=== PATIENT | female | born 1970 | race Caucasian/White ===

== ENCOUNTER 2020-11-09 14:05 | Emergency (ER) | payer OTHER ==
[2020-11-09 14:53] LABS: Urine Blood 1+ (Negative); Urine Glucose Negative (Negative); Urine Protein Negative (Negative); Urine Specific Gravity 1.025 (1.005-1.030); Urine pH 5.5 (5.0-7.0)
[2020-11-09 15:42] LABS: Urine Specific Gravity/Preg 1.025 (1.005-1.030)
[2020-11-09 15:59] LABS: Basophils % 0.7 % (0-1.3); Hematocrit 36.8 % (36.0-45.0); Lymphocytes % 14.5 % (15.3-44.8); MPV 7.9 fL (7.6-11.3); RBC Red Blood Cell Count 4.24 M/uL (3.86-4.86)
[2020-11-09 16:12] LABS: Potassium 3.4 mmol/L (3.5-5.1)
[2020-11-09 16:13] LABS: Albumin 3.7 g/dL (3.4-5.0); Bilirubin Direct 0.2 mg/dL (0-0.2); Bilirubin Total 0.6 mg/dL (0.2-1.0); Protein, Total 7.8 g/dL (6.4-8.2)
[2020-11-09] MEDS ORDERED: FAMOTIDINE 20 MG/2 ML VIAL IV ONE (16:16)
[2020-11-09] MEDS ORDERED: ONDANSETRON 4 MG/2 ML VIAL ONE (16:16)
--- NOTE | 2020-11-09 16:45 | RAD REPORT ---
EXAM DESCRIPTION: US - Abdomen Exam Limited - 11/09/2020 4:22 pm CLINICAL HISTORY: upper abdomen pain COMPARISON: No comparisons FINDINGS: The gallbladder is distended with gallstones. No gallbladder wall thickening. No perichole cystic fluid. No biliary ductal dilatation. The common bile duct measures 5 millimeters. IMPRESSION: Cholelithiasis without sonographic evidence of acute cholecystitis.
[2020-11-09 17:05] LABS: Blood Morphology Comment NOT SEEN (NOT SEEN); Platelet Estimate INCR; White Blood Cell Scan OK (OK)
--- NOTE | 2020-11-09 20:17 | RAD REPORT ---
EXAM DESCRIPTION: MRI - Cholangiogram - 11/09/2020 8:07 pm CLINICAL HISTORY: elevated liver enzymes COMPARISON: Abdomen Exam Limited dated 11/09/2020 FINDINGS: Three-dimensional MRCP was performed using maximum intensity projection reconstruction on the same work station. No intrahepatic biliary tree dilatation is seen. The common bile duct is normal caliber without evide nce of retained stone, stricture or mass. The pancreatic duct is not pathologically dilated. T2 hyper intense liver lesions are most likely benign. Cholelithiasis. No pericholecystic fluid is identified. Limited T2 sequences through the abdomen demonstrates no bulky adenopathy, significant free fluid or abscess. IMPRESSION: Cholelithiasis but no biliary ductal dilatation or evidence of choledocholithiasis.
--- NOTE | 2020-11-09 20:29 | ER ---
Nurse's Notes [facility] Name: Margarita Munoz Age: 50 yrs Sex: Female : 1970 Arrival Date: 11/09/2020 Time: 14:06 Bed 19 Private MD: Diagnosis: Other cholelithiasis without obstruction Presentation: 11/09 14:25 Chief complaint: Patient states: Pt c/o of Epigastric pain, RUQ and LUQ pain that vg1 radiates to the back that began today. Denies NVD. Coronavirus screen: Vaccine status: Patient reports receiving the 2nd dose of the covid vaccine. Client denies travel out of the [place] in the last 14 days. Ebola Screen: Patient negative for fever greater than or equal to 101.5 degrees Fahrenheit, and additional compatible Ebola Virus Disease symptoms. Initial Sepsis Screen: Does the patient meet any 2 criteria? No. Patient's initial sepsis screen is negative. Does the patient have a suspected source of infection? No. Patient's initial sepsis screen is negative. Risk Assessment: Do you want to hurt yourself or someone else? Patient reports no desire to harm self or others. Onset of symptoms was November 09, 2020. 14:25 Method Of Arrival: Wheelchair vg1 14:25 Acuity: SAHRA 3 vg1 Triage Assessment: 14:27 General: Appears in no apparent distress. uncomfortable, Behavior is calm, cooperative. vg1 Pain: Complains of pain in epigastric area, right upper quadrant and left upper quadrant and upper back Pain currently is 7 out of 10 on a pain scale. GI: Abdomen is round non-distended, Patient currently denies diarrhea, nausea, vomiting. RN HEDIS: 14:27 LMP N/A - control method vg1 Historical: - Allergies: 14:27 No Known Allergies; vg1 - Home Meds: 14:27 Lexapro Oral [Active]; vg1 - PSHx: 14:27 Appendectomy; section; vg1 - Immunization history:: Adult Immunizations up to date, Client reports receiving the 2nd dose of the Covid vaccine. - Social history:: Smoking status: Patient/guardian denies using tobacco, the patient reports quitting approximately 2 years ago. Screenin:38 Abuse screen: Denies threats or abuse. Denies injuries from another. Nutritional tr6 screening: No deficits noted. Tuberculosis screening: No symptoms or risk factors identified. Fall Risk None identified. Assessment: 15:00 General: Appears in no apparent distress. comfortable, Behavior is calm, cooperative, tr6 appropriate for age. Pain: Complains of pain in abdomen Pain radiates to lower back. Neuro: No deficits noted. Cardiovascular: No deficits noted. Respiratory: No deficits noted. GI: Bowel sounds present X 4 quads. Abd is soft and non tender. : No deficits noted. EENT: No deficits noted. Derm: No deficits noted. Musculoskeletal: No deficits noted. 16:37 Reassessment: Patient states feeling better. pt states that she is feeling much better tr6 now than on arrival with no intervention. PA Page informed. pending results of US.. General:. Vital Signs: 14:25 BP 124 / 82; Pulse 80; Resp 16; Temp 97.9(O); Pulse Ox 100% ; Weight 79.38 kg; Height 5 vg1 ft. 8 in. (172.72 cm); Pain 7/10; 19:10 BP 127 / 78; Pulse 74; Resp 18; Temp 98.2; Pulse Ox 99% ; Pain 3/10; kc4 20:56 BP 128 / 80; Pulse 78; Resp 18; Temp 98.6; Pulse Ox 100% on R/A; Pain 0/10; kc4 14:25 Body Mass Index 26.61 (79.38 kg, 172.72 cm) vg1 ED Course: 14:06 Patient arrived in ED. ds1 14:27 Triage completed. vg1 14:27 Arm band placed on Patient placed in waiting room, in a wheelchair, Patient notified of vg1 wait time. 15:15 Omkar Carson PA is PHCP. cp 15:15 Chris Wolf MD is Attending Physician. cp 15:17 Michelle Mayers RN is Primary Nurse. tr6 16:06 Initial lab(s) drawn, by me, sent to lab. Missed attempt(s): 22 gauge in left forearm. kj1 16:21 US Abdomen Limited: RUQ/epigastric In Process Unspecified. EDMS 16:38 No apparent distress. Awaiting radiology results. tr6 16:38 Patient has correct armband on for positive identification. Bed in low position. Call tr6 light in reach. Side rails up X 1. Door closed. Noise minimized. Visitors limited. Lights dimmed. Moved to private room. Warm blanket given. Diet: Patient is NPO. 16:38 No provider procedures requiring assistance completed. tr6 17:20 Inserted saline lock: 20 gauge in right antecubital area, using aseptic technique. tr6 Blood collected. 20:06 Cholangiogram In Process Unspecified. EDMS 20:28 Basil Block MD is Referral Physician. cp 20:56 IV discontinued, intact, bleeding controlled, No redness/swelling at site. Pressure kc4 dressing applied. Administered Medications: 17:23 Drug: NS 0.9% 1000 ml Route: IV; Rate: 1 bolus; Site: right antecubital; tr6 19:37 Follow up: IV Status: Completed infusion kc4 20:57 Follow up: IV Status: Completed infusion kc4 17:23 Not Given (Patient Refused): Zofran (Ondansetron) 4 mg IVP once; over 2 minutes tr6 17:23 Not Given (Patient Refused): Pepcid (famotidine) 20 mg IVP once; dilute with 10 mL 0.9% tr6 NaCl; give over 2 minutes 20:34 Drug: Potassium Effervescent Tablet 50 mEq Route: PO; kc4 20:54 Follow up: Response: No adverse reaction kc4 20:34 Drug: Rocephin (cefTRIAXone) 1 grams Route: IV; Rate: calculated rate; Site: right kc4 antecubital; 20:54 Follow up: Response: No adverse reaction kc4 Outcome: 20:29 Discharge ordered by MD. cp 20:54 Discharged to home ambulatory, with family. kc4 20:54 Condition: stable 20:54 Discharge instructions given to patient, significant other, Instructed on discharge instructions, follow up and referral plans. medication usage, Demonstrated understanding of instructions, follow-up care, medications, Prescriptions given X 3. 20:58 Patient left the ED. kc4 Signatures: Dispatcher [employer] [facility] Keli Wayne ds1 Omkar Carson PA PA cp Jackson, Kandis kj1 [place], RN RN vg1 Michelle Mayers, RN RN tr6 Jillian Walsh kc4
--- NOTE | 2020-11-09 20:29 | EDPHYS ---
Physician Documentation [facility] Name: Margarita Munoz Age: 50 yrs Sex: Female : 1970 Arrival Date: 11/09/2020 Time: 14:06 Bed 19 Private MD: ED Physician Chris Wolf HPI: 11/09 15:55 This 50 yrs old Female presents to ER via Wheelchair with complaints of cp Abdominal Pain, Chest Pain. 15:55 The patient presents with abdominal pain in the epigastric area, in the right upper cp quadrant. 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 - Social history:: Smoking status: Patient/guardian denies using tobacco, the patient reports quitting approximately 2 years ago. ROS: 16:00 Constitutional: Negative for body aches, chills, fever, poor PO intake. cp 16:00 Eyes: Negative for injury, pain, redness, and discharge. cp 16:00 ENT: Negative for ear pain, sore throat, difficulty swallowing, difficulty handling secretions. 16:00 Cardiovascular: Negative for chest pain, palpitations. 16:00 Respiratory: Negative for cough, shortness of breath, wheezing. 16:00 Abdomen/GI: Positive for abdominal pain, nausea, of the epigastric area and right upper quadrant, Negative for vomiting, diarrhea, constipation, anorexia, dysphagia. 16:00 Back: Positive for radiated pain, of the mid back area. 16:00 Neuro: Negative for altered mental status, headache, weakness. 16:00 All other systems are negative. Exam: 16:10 Head/Face: Normocephalic, atraumatic. cp 16:10 Constitutional: The patient appears in no acute distress, alert, awake, non-toxic, well developed, well nourished, uncomfortable. 16:10 Eyes: Periorbital structures: appear normal, Conjunctiva: normal, no exudate, no injection, Sclera: no appreciated abnormality, Lids and lashes: appear normal, bilaterally. 16:10 ENT: External ear(s): are unremarkable, Nose: is normal, Mouth: Lips: moist, Oral mucosa: moist, Posterior pharynx: Airway: no evidence of obstruction, patent. 16:10 Chest/axilla: Inspection: normal, Palpation: is normal, no crepitus, no tenderness. 16:10 Cardiovascular: Rate: normal, Rhythm: regular. 16:10 Respiratory: the patient does not display signs of respiratory distress, Respirations: normal, no use of accessory muscles, no retractions, labored breathing, is not present, Breath sounds: are clear throughout, no decreased breath sounds, no stridor, no wheezing. 16:10 Abdomen/GI: Inspection: abdomen appears normal, Bowel sounds: active, all quadrants, Palpation: soft, in all quadrants, mild abdominal tenderness, in the epigastric area and right upper quadrant, rebound tenderness, is not appreciated, involuntary guarding, is not appreciated. 16:10 Back: pain, that is very mild, of the mid back area, ROM is normal, Straight leg raises: of both lower extremities does not illicit pain. Vital Signs: 14:25 BP 124 / 82; Pulse 80; Resp 16; Temp 97.9(O); Pulse Ox 100% ; Weight 79.38 kg; Height 5 vg1 ft. 8 in. (172.72 cm); Pain 7/10; 19:10 BP 127 / 78; Pulse 74; Resp 18; Temp 98.2; Pulse Ox 99% ; Pain 3/10; kc4 20:56 BP 128 / 80; Pulse 78; Resp 18; Temp 98.6; Pulse Ox 100% on R/A; Pain 0/10; kc4 14:25 Body Mass Index 26.61 (79.38 kg, 172.72 cm) vg1 MDM: 15:31 Patient medically screened. cp 16:00 Differential diagnosis: cholecystitis, Cholelithiasis, gastritis, gastroesophageal cp reflux disease, pancreatitis, Peptic Ulcer Disease, Perf. Duodenal Ulcer, Perf. Gastric Ulcer. 16:50 Physician consultation: Basil Block MD was contacted at 16:45, regarding consult, cp patient's condition, would like further tests performed, MRI, and call back with results. 20:25 Data reviewed: vital signs, nurses notes, lab test result(s), radiologic studies, MRI, cp ultrasound. 20:25 Physician consultation: Basil Block MD was contacted at 20:20, regarding patient's cp condition, results of MRI, and will see patient in office, next week. 20:28 ED course: VSS. Pain resolved and patient requesting discharge to home and will f/u in cp clinic with DR Block on Friday. Patient declined admission for cholecystectomy and would rather f/u up outpatient. Patient will return to ED worsening symptoms. 11/09 14:52 Order name: Urine Dipstick-Ancillary; Complete Time: 16:27 [facility] 11/09 16:27 Interpretation: Normal except: UBLD 1+. 11/09 14:53 Order name: Urine --Ancillary (enter results); Complete Time: 16:27 11/09 15:47 Order name: Basic Metabolic Panel; Complete Time: 16:27 11/09 16:27 Interpretation: Normal except: K 3.4; GFR 67; CA 10.2. 11/09 15:47 Order name: CBC with Diff; Complete Time: 17:08 11/09 16:28 Interpretation: Normal except: WBC 13.70; PLT 488; IVA% 78.1; LYM% 14.5; NEUT A 10.7. 11/09 15:47 Order name: Hepatic Function; Complete Time: 16:27 11/09 16:27 Interpretation: Normal except: AST 79; ALK 135; GLOB 4.1; A/G 0.9. 11/09 15:47 Order name: Lipase; Complete Time: 16:27 11/09 16:58 Interpretation: Within normal limits: LIP 161. 11/09 15:48 Order name: US Abdomen Limited: RUQ/epigastric; Complete Time: 16:47 11/09 16:47 Interpretation: Report reviewed. 11/09 17:03 Order name: Cholangiogram; Complete Time: 20:22 [facility] 11/09 17:05 Order name: CBC Smear Scan; Complete Time: 17:08 [facility] 11/09 15:47 Order name: IV Saline Lock; Complete Time: 15:49 11/09 15:47 Order name: Labs collected and sent; Complete Time: 15:49 11/09 15:48 Order name: NPO; Complete Time: 15:50 cp Administered Medications: 17:23 Drug: NS 0.9% 1000 ml Route: IV; Rate: 1 bolus; Site: right antecubital; tr6 19:37 Follow up: IV Status: Completed infusion kc4 20:57 Follow up: IV Status: Completed infusion kc4 17:23 Not Given (Patient Refused): Zofran (Ondansetron) 4 mg IVP once; over 2 minutes tr6 17:23 Not Given (Patient Refused): Pepcid (famotidine) 20 mg IVP once; dilute with 10 mL 0.9% tr6 NaCl; give over 2 minutes 20:34 Drug: Potassium Effervescent Tablet 50 mEq Route: PO; kc4 20:54 Follow up: Response: No adverse reaction kc4 20:34 Drug: Rocephin (cefTRIAXone) 1 grams Route: IV; Rate: calculated rate; Site: right kc4 antecubital; 20:54 Follow up: Response: No adverse reaction kc4 Disposition: 11/10 05:21 Co-signature as Attending Physician, Chris Wolf MD I agree with the assessment and kdr plan of care. Disposition Summary: 11/09/20 20:29 Discharge Ordered Location: Home cp Problem: new cp Symptoms: are resolved cp Condition: Stable cp Diagnosis - Other cholelithiasis without obstruction cp Followup: cp - With: Basil Block MD - When: Friday (11-13-2020) in clinic - Reason: cholelithiasis Discharge Instructions: - Discharge Summary Sheet cp - Cholelithiasis cp Forms: - Medication Reconciliation Form cp - Thank You Letter cp - Antibiotic Education cp - Prescription Opioid Use cp Prescriptions: - Zofran 4 mg Oral Tablet - take 1 tablet by ORAL route every 12 hours As needed; 20 tablet; Refills: 0, cp Product Selection Permitted - Cipro 500 mg Oral Tablet - take 1 tablet by ORAL route every 12 hours for 7 days; 14 tablet; Refills: 0, cp Product Selection Permitted - dicyclomine 20 mg Oral Tablet - take 1 tablet by ORAL route 4 times per day; 30 tablet; Refills: 0, Product cp Selection Permitted Signatures: Dispatcher [employer] EDMS Chris Wolf MD MD kdr Omkar Carson PA PA cp Garcia, Victoria, RN RN vg1 Michelle Mayers RN RN tr6 Jillian Walsh kc4 Corrections: (The following items were deleted from the chart) 11/09 16:28 16:27 Normal except: WBC 13.70; PLT 488; IVA% 78.1; LYM% 14.5. cp cp
[2020-11-09] MEDS ORDERED: POTASSIUM 25 MEQ EFFERV TAB ONE (20:56)
[2020-11-09] MEDS ORDERED: CEFTRIAXONE/SWI 1gm 1 GM/10 ML SYR ONE (20:57)
[2020-11-09 21:56] VITALS: O2SAT 100
[2020-11-09 22:04] VITALS: BP 140/86; TEMP 98.3
== END 2020-11-09 20:58 | disposition home or self-care (01) ==
LOC: ER 14:05
DX: K80.80 Other cholelithiasis without obstruction (principal)
CPT/HCPCS: 96361; 85025; 80048; 36415; 81025; 80076; 81003; 83690; 74181; 76705; 96374; 99284; J0696; J2405

== ENCOUNTER 2020-11-16 07:44 | Day surgery (SDC) | payer OTHER ==
[2020-11-15 15:57] LABS: Hematocrit 33.2 % (36.0-45.0); Lymphocytes % 29.9 % (15.3-44.8); MPV 7.8 fL (7.6-11.3); RBC Red Blood Cell Count 3.81 M/uL (3.86-4.86)
[2020-11-15 16:19] LABS: ALT/SGPT 60 U/L (12-78); AST/SGOT 17 U/L (15-37); Albumin 3.5 g/dL (3.4-5.0); Alkaline Phosphatase 85 U/L (45-117); Amylase 67 U/L (25-115); BUN Blood Urea Nitrogen 15 mg/dL (7-18); Bicarbonate 26 mmol/L (21-32); Bilirubin Direct < 0.1 mg/dL (0-0.2); Bilirubin Total 0.4 mg/dL (0.2-1.0); Glucose Level 135 mg/dL (74-106); Potassium 3.6 mmol/L (3.5-5.1); Protein, Total 7.2 g/dL (6.4-8.2); Sodium Level 139 mmol/L (136-145)
--- NOTE | 2020-11-15 16:45 | RAD REPORT ---
EXAM DESCRIPTION: RAD - Chest Pa And Lat (2 Views) - 11/15/2020 3:42 pm CLINICAL HISTORY: PreOp COMPARISON: Chest Pa And Lat (2 Views) dated 01/23/2018 FINDINGS: Lines: None. Lungs: No evidence of edema or pneumonia. Pleural: No significant pleural effusions or pneumothorax. Cardiac: The heart size is within normal limits. Bones: No acute fractures. Other: IMPRESSION: No acute cardiopulmonary disease.
[2020-11-16] MEDS ORDERED: Ringers Lactate 1,000 ML IV ONE ×2 (08:14→11:00)
[2020-11-16] MEDS ORDERED: CEFOXITIN/SWI 1gm 1 GM/10 ML SYR ONE (08:15)
[2020-11-16] MEDS ORDERED: propofoL 200 MG/20 ML VIAL IV ONE (09:08)
[2020-11-16] MEDS ORDERED: GLYCOPYRROLATE 0.2 MG/ML SYR ONE (09:08)
[2020-11-16] MEDS ORDERED: LIDOCAINE 1% MPF 2 ML AMPULE ONE (09:09)
[2020-11-16] MEDS ORDERED: FENTANYL CITR 100 MCG/2 ML ONE (09:09)
[2020-11-16] MEDS ORDERED: ROCURONIUM 50 MG/5 ML VIAL IV ONE (09:09)
[2020-11-16] MEDS ORDERED: ONDANSETRON 4 MG/2 ML VIAL ONE (09:09)
[2020-11-16] MEDS ORDERED: MIDAZOLAM HCL 2 MG/2 ML INJ ONE (09:09)
[2020-11-16] MEDS ORDERED: dexAMETHasone 10 MG/ML VIAL ONE (09:09)
[2020-11-16] MEDS ORDERED: KETOROLAC 30 MG/ML INJ ONE (09:09)
[2020-11-16] MEDS ORDERED: BUPIVACAINE 0.5% PF 10 ML VIAL ONE (09:29)
[2020-11-16] MEDS ORDERED: NEOSTIGMINE 1 MG/ML -5 ML ONE (10:52)
--- NOTE | 2020-11-16 11:04 | OP ---
Date of Procedure: 11/16/2020 Surgeon: Basil Block MD Damage Appraiser: FRANK Obando Preoperative Diagnosis: Chronic cholecystitis and cholelithiasis. Postoperative Diagnosis: Chronic cholecystitis and cholelithiasis. Procedure: Laparoscopic cholecystectomy. Estimated Blood Loss: Minimal. Specimen: Gallbladder. Findings: As above. Anesthesia: General. Complications: None. Disposition: The patient tolerated the procedure in stable condition and taken to Recovery in good g eneral condition. Procedure In Detail: The patient was brought to the OR and placed in supine position. General anest hesia begun. The patient was prepped and draped in the usual sterile fashion. Marcaine 0.5% was inf iltrated locally. A 15-blade was used to make a 1 cm incision in the supraumbilical region. Subcuta neous tissue divided. Fascia was identified and divided. Peritoneal cavity entered with sharp and b perri dissection. A 12 mm trocar was placed into the peritoneal cavity under direct vision. Pneumope ritoneum was established. Then, three 5 mm trocars were placed, 1 in the epigastrium just to the rig ht of midline and 2 in the right subcostal region. Laparoscopy revealed chronic inflammation of the gallbladder. Fundus retracted superiorly. Infundibulum identified and retracted inferolaterally. C ystic duct and cystic artery were clearly identified with sharp and blunt dissection. Clips placed. Both structures divided. Cautery was used to remove the gallbladder from the liver bed. Bleeding o n the liver bed was controlled with cautery. Gallbladder was retrieved through the umbilicus via an EndoCatch bag. Right upper quadrant was irrigated. Effluent was clear. No evidence of bleeding or bile leakage appreciated. Subsequently, all trocars were removed under direct vision. A #1 Vicryl w as used to close the fascial defects. Subcutaneous wounds irrigated. Bleeding controlled with caute ry. A 3-0 chromic used to reapproximate subcutaneous tissue and maryse used to close the skin. Hans rile dressing applied. The patient was awakened and taken to Recovery in good general condition. Discharge Note: The patient will go to Day Surgery and home when stable. Disposition: Home. Condition: Stable. Discharge Instructions: Resume home medications and diet. Activity as tolerated. No heavy lifting. Remove outer dressing in 2 days. Shower. Keep wound clean and dry. Follow up in my office [place] Call for appointment. Tylenol No.3 one tablet p.o. q.4 p.r.n. pain. SANDHYA/YISEL Voice ID: [id number] Report ID: [id number]
[2020-11-16 11:11] VITALS: O2SAT 95
[2020-11-16] MEDS ORDERED: HYDROCODONE/APAP 7.5/325 MG TAB ONE (12:01)
[2020-11-16] MEDS ORDERED: NA CIT/CITRIC AC 30 ML ORAL UDC ONE (12:04)
[2020-11-16 12:24] VITALS: BP 132/78; TEMP 97.6
== END 2020-11-16 12:40 | disposition home or self-care (01) ==
LOC: OR 07:44
PROVIDERS: ATTEND Surgery
PROC: 0FT44ZZ Resection of Gallbladder, Percutaneous Endoscopic Approach (ICD-10-PCS; principal; 2020-11-16 09:30)
DX: K80.10 Calculus of gallbladder with chronic cholecystitis without obstruction (principal); Z20.822 Contact with and (suspected) exposure to COVID-19
CPT/HCPCS: 93005; 85025; 80048; 36415; 82150; 84703; 80076; 88304; 71046; 47562; U0003; J2704; J2250; J3010; J1100; J2710; J7120 ×2; J2405

== ENCOUNTER 2021-12-31 12:05 | Day surgery (SDC) | payer OTHER ==
[2021-12-28 10:45] LABS: Absolute Lymphocytes (CBC) 2.2 K/uL (0.7-4.9); Hematocrit 40.3 % (36.0-45.0); Lymphocytes % 26.2 % (15.3-44.8); MCV 86.1 fL (80-100); RBC Red Blood Cell Count 4.69 M/uL (3.86-4.86)
[2021-12-28 10:52] LABS: Specific Gravity 1.006 (1.005-1.030)
[2021-12-28 10:53] LABS: Protime INR 0.98
[2021-12-28 11:07] LABS: Potassium 4.1 mmol/L (3.5-5.1)
--- NOTE | 2021-12-29 12:37 | EKG ---
Test Date: 2021-12-28 Test Time: 10:13:15 Story Editor: TA MEASUREMENT RESULTS: Intervals: Rate: 60 CO: 160 QRSD: 84 QT: 428 QTc: 428 Craig: P: 56 CO: 160 QRS: 64 T: 26 INTERPRETIVE STATEMENTS: Normal sinus rhythm Normal ECG Compared to ECG 11/27/2021 22:53:23 No significant changes Electronically Signed On 12-29-21 12:35:56 CDT by Miguel Miller
[2021-12-31] MEDS ORDERED: NA CHLORIDE 0.9% 500 ML ONE (12:29)
[2021-12-31] MEDS ORDERED: LIDOCAINE 1% 20 ML MDV ONE (12:49)
[2021-12-31] MEDS ORDERED: HEPA 1000U/500MLS 2,000 UNIT/1,000 ML BAG IV ONE (12:49)
[2021-12-31] MEDS ORDERED: FENTANYL CITR 100 MCG/2 ML ONE (13:03)
[2021-12-31] MEDS ORDERED: CLOPIDOGREL 75 MG TABLET ONE (13:04)
[2021-12-31] MEDS ORDERED: MIDAZOLAM HCL 2 MG/2 ML INJ ONE (13:04)
[2021-12-31] MEDS ORDERED: VERAPAMIL HCL 10 MG/4 ML VIAL IV ONE (13:04)
[2021-12-31] MEDS ORDERED: HEPARIN 5000 UNIT/ML 1 ML VIAL ONE (13:04)
[2021-12-31] MEDS ORDERED: ASPIRIN 325 MG TAB ONE (13:04)
[2021-12-31] MEDS ORDERED: TICAGRELOR 90 MG TABLET PO ONE (13:05)
[2021-12-31] MEDS ORDERED: HEPARIN 10,000 UNIT/10 ML VIAL IV ONE (13:05)
[2021-12-31] MEDS ORDERED: ATROPINE SULF 1 MG/10 ML SYR IV ONE (13:05)
[2021-12-31 15:38] VITALS: BP 122/66; O2SAT 98
--- NOTE | 2022-01-01 00:41 | OP ---
Date of Procedure: 12/31/2021 Surgeon: SERENITY WALL Procedures Performed: 1.Selective coronary angiogram. 2.Left heart catheterization. 3.Right heart catheterization. Indication: 1.Persistent chest pain suggestive of unstable angina. 2.Congestive heart failure symptoms. Access: 1.Right radial artery 6-[place] closed with TR band. 2.Right IJ 7-[place] access closed with manual pressure. Complications: None. Estimated Blood Loss: Bleeding less than 10 mL. Anesthesia: Total sedation time was 35 minutes, used fentanyl and Versed. Description Of Procedure: After risks, benefits, and alternatives were explained, the patient agreed to the procedure and signed informed consent. Patient was brought to the cardiac catheterization la boratory and prepped and draped in usual sterile fashion. Then, I accessed the right IJ using microp uncture kit, ultrasound guidance, and placed 7-[place] sheath. Then I accessed right radial artery using pediatric micropuncture kit and placed a 6-[place] Sl[place] sheath. I then took a 7-Frenc h [place] catheter through the IJ access into the RA, RV, PA and wedge, measured pressure and waveform w as obtained and then the thermodilutional cardiac output was obtained. I removed the [place] and then I took 5-[place] 4 catheter into the aortic root through the radial access over a J-wire, engaged left main and right coronary artery, took standard views and then catheter was pushed over the wire into the LV and measured the LVEDP and pullback did not record any gradient. I removed the catheter and sheath, placed TR band with good hemostasis. The IJ sheath was removed and manual pressure was u sed for closure with good hemostasis. Findings: Coronary angiogram: 1.Left main: Moderate size and normal. 2.LAD: Moderate size and normal. Normal diagonal branches. 3.There is ramus intermedius that appears to be normal and smaller sized. 4.Left circumflex: Moderate size and normal. 5.RCA: Moderate size and normal in dominant circulation. 6.Elevated LVEDP at 15 mmHg. Right heart catheterization numbers: PA pressure was 12/10 with mean of 11. RV pressure was 27/13 w ith mean of 15. PA pressure was 26/70 with mean of 21. Pulmonary wedge pressure was 15 and LVEDP wa s 15. Cardiac output was 5.3 L/minute. Conclusion: 1.Normal coronary arteries. 2.Slightly elevated filling pressures with normal cardiac output. Plan: Medical management and diuretics. SR/MODL Voice ID: [id number] Report ID: [id number]
== END 2021-12-31 15:38 | disposition home or self-care (01) ==
LOC: CCL 12:05
PROVIDERS: ATTEND Internal Medicine
DX: I20.0 Unstable angina (principal); I50.9 Heart failure, unspecified; Z87.891 Personal history of nicotine dependence; Z79.899 Other long term (current) drug therapy; Z82.49 Family history of ischemic heart disease and other diseases of the circulatory system
CPT/HCPCS: 36415; 76937; 80048; 81025; 82947; 85025; 85610; 85730; 93005; 93460; C1893; J1644; J2250; J3010; J7040; Q9966

== ENCOUNTER 2022-01-07 16:15 | Inpatient (IN) | payer OTHER ==
[2022-01-07] MEDS ORDERED: HEPARIN 5000 UNIT/ML 1 ML VIAL IV SCH (19:00)
--- NOTE | 2022-01-07 20:05 | P.HP ---
Certification for Inpatient Patient admitted to: Inpatient With expected LOS: <2 Midnights Patient will require the following post-hospital care: None Practitioner: I am a practitioner with admitting privileges, knowledge of patient current condition, hospital course, and medical plan of care. Services: Services provided to patient in accordance with Admission requirements found in Title 42 Section 412.3 of the Code of Federal Regulations Patient History Date of Service: 01/07/22 Reason for admission: Radial Artery Thrombosis History of Present Illness: Patient is a 51-year-old female with history of CAD, CHF, non-insulin dependent type 2 diabetes, depression, and anemia who presented to the ED with radial artery thrombosis. Patient had a cardiac cath with Dr. Dahl 1 week ago. She had an ultrasound follow-up today which revealed thrombosis in her radial artery and was sent to the ED. Her vital signs are stable. Labs are within normal ferraro its. No cyanosis, decreased sensation, numbness. Mild bruising and swelling noted to right wrist. Dr. Dahl wishes for her to be admitted and started on heparin drip. Allergies No Known Allergies Allergy (Verified 12/28/21 10:30) Home medications list reviewed: Yes Home Medications: Escitalopram [Lexapro] 20 mg PO DAILY 11/15/20 Ferrous Sulfate 325 mg PO DAILY 12/28/21 Furosemide [Lasix] 40 mg PO DAILY 12/28/21 Metformin ER [Glucophage ER*] 500 mg PO DAILY 12/28/21 Potassium Chloride 20 meq PO DAILY 12/28/21 - Past Medical/Surgical History Diabetic: Yes -: Type 2 Diabetes, Non-Insulin Dependent -: CAD -: CHF -: Anemia -: Depression -: Cholecystectomy -: Cardiac cath with stent placement -: Appendectomy Psychosocial/ Personal History: Patient lives at home with her . - Social History Smoking Status: Never smoker Alcohol use: No CD- Drugs: No Caffeine use: Yes Place of Residence: Home Review of Systems Musculoskeletal: Arm Pain Physical Examination - Physical Exam General: Alert, In no apparent distress HEENT: Atraumatic, PERRLA, EOMI, Sclerae nonicteric Neck: Supple, 2+ carotid pulse no bruit, No LAD, Without JVD or thyroid ab normality Respiratory: Clear to auscultation bilaterally, Normal air movement Cardiovascular: Regular rate/rhythm, Normal S1 S2 Gastrointestinal: Normal bowel sounds, No tenderness Musculoskeletal: No tenderness Integumentary: Tenderness/swelling, Erythema Neurological: Normal speech, Normal strength at 5/5 x4 extr, Normal tone, Normal affect Assessment and Plan - Problems (Diagnosis) (1) Radial artery thrombosis, right Current Visit: Yes Status: Acute (2) CAD (coronary artery disease) Current Visit: Yes Status: Chronic Qualifiers: Coronary Disease-Associated Artery/Lesion type: craig artery [place] vs. transplanted heart: craig heart Associated angina: without angina Qualified Code(s): I25.10 - Atherosclerotic heart disease of craig coronary artery without angina pectoris (3) Hypertension Current Visit: Yes Status: Chronic Qualifiers: Hypertension type: primary hypertension Qualified Code(s): I10 - Essential (primary) hypertension - Plan Continue heparin drip. Glucose monitoring and control with sliding scale. Cardiology consult. Monitor on telemetry. Monitor and replete electrolytes per protocol. Reconcile and continue home medications. Full code. Discharge Plan: Home Plan to discharge in: 48 Hours - Advance Directives Does patient have a Living Will: No Does patient have a Durable POA for Healthcare: No - Code Status/Comfort Care Code Status Assessed: Yes (Full) Critical Care: No Time Spent Managing Pts Care (In Minutes): 50
[2022-01-07] MEDS ORDERED: HEPARIN 5000 UNIT/ML 1 ML VIAL ONE (20:42)
[2022-01-07] MEDS ORDERED: HEPARIN/D5W 25,000 UNIT/500 ML BAG IV ONE (20:43)
[2022-01-07 21:40] LABS: Hematocrit 38.2 % (36.0-45.0); Lymphocytes % 33.4 % (15.3-44.8); MCV 86.6 fL (80-100); MPV 8.1 fL (7.6-11.3); RBC Red Blood Cell Count 4.41 M/uL (3.86-4.86)
[2022-01-07 21:44] LABS: SARS-CoV-2 Antigen Rapid Res Negative (Negative)
[2022-01-07 21:47] LABS: Protime INR 0.92
[2022-01-07 22:03] LABS: Potassium 3.8 mmol/L (3.5-5.1)
[2022-01-07] MEDS ORDERED: ACETAMINOPHEN 325 MG TABLET ONE (22:30)
[2022-01-07] MEDS ORDERED: ACETAMINOPHEN 500 MG TAB PO PRN (22:58)
[2022-01-07] MEDS ORDERED: GLUCAGON 1 MG/VIAL IM PRN (22:58)
[2022-01-07] MEDS ORDERED: D50W 25 GM/50 ML SYRINGE IV PRN (22:58)
--- NOTE | 2022-01-07 22:59 | RAD REPORT ---
EXAM DESCRIPTION: US - UPPER EXTREMITY VENOUS UNILATE - 01/07/2022 8:28 pm CLINICAL HISTORY: Pain Arm swelling and edema. COMPARISON: Extrem Venous W Compress Lamberto dated 11/27/2021 FINDINGS: Right upper extremity venous system was interrogated with Doppler technique. Normal flow, compressibility and augmentation was noted. There is no DVT present. IMPRESSION: No evidence of right upper extremity deep venous thrombosis.
[2022-01-07] MEDS ORDERED: HYDROCODONE/APAP 7.5/325 MG TAB PO PRN (23:27)
[2022-01-07] MEDS: HEPARIN/D5W 25,000 UNIT/500 ML BAG IV PRN (23:29)
[2022-01-07] MEDS ORDERED: HYDROCODONE/APAP 7.5/325 MG TAB ONE (23:34)
[2022-01-07] MEDS ORDERED: FUROSEMIDE 40 MG TABLET PO ONE (23:48)
[2022-01-07] MEDS ORDERED: ESCITALOPRAM 20 MG TAB PO ONE (23:48)
[2022-01-08] MEDS ORDERED: FUROSEMIDE 40 MG TABLET ONE (00:31)
[2022-01-08] MEDS ORDERED: ESCITALOPRAM 20 MG TAB ONE (00:34)
--- NOTE | 2022-01-08 01:01 | EDPHYS ---
Physician Documentation [facility] Name: Margarita Munoz Age: 51 yrs Sex: Female : 1970 Arrival Date: 01/07/2022 Time: 16:17 Bed 6 Private MD: ED Physician Oniel Aguilar HPI: 01/07 17:02 This 51 yrs old Female presents to ER via Ambulatory with complaints of Blood Clot. rn 17:02 The patient or guardian reports pain. The complaints affect the right wrist diffusely. rn Onset: The symptoms/episode began/occurred 1 week(s) ago. Modifying factors: The symptoms are alleviated by nothing, the symptoms are aggravated by nothing. Associated signs and symptoms: Pertinent negatives: cyanosis distally, decreased sensation distally, fever, numbness distally, tingling distally. The patient has not experienced similar symptoms in the past. The patient has not recently seen a physician. REports right radial access heart cath 1 week ago, just sent by Dr. Dahl for blood clot in right wrist. No hx of blood clot. . 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 - Social history:: Smoking status: Patient denies any tobacco usage or history of. Patient/guardian denies using alcohol. - Family history:: not pertinent. - Hospitalizations: : No recent hospitalization is reported. ROS: 17:02 Constitutional: Negative for fever, chills, and weight loss, Cardiovascular: Negative rn for chest pain, palpitations, and edema, Respiratory: Negative for shortness of breath, cough, wheezing, and pleuritic chest pain, Abdomen/GI: Negative for abdominal pain, nausea, vomiting, diarrhea, and constipation, MS/Extremity: + right wrist pain and swelling Skin: + bruising to right wrist Neuro: Negative for headache, weakness, numbness, tingling, and seizure. Exam: 17:02 Constitutional: This is a well developed, well nourished patient who is awake, alert, rn and in no acute distress. Head/Face: Normocephalic, atraumatic. Cardiovascular: Regular rate and rhythm. No pulse deficits. Skin: Warm, dry, slight ecchymosis and swelling right wrist MS/ Extremity: Pulses equal, no cyanosis. Neurovascular intact. Full, normal range of motion. Radial pulse intact and present. Vital Signs: 16:26 BP 141 / 85; Pulse 87; Resp 18; Temp 98.6(O); Pulse Ox 96% on R/A; Weight 90.72 kg; ld1 Height 5 ft. 8 in. (172.72 cm); Pain 6/10; 16:50 BP 128 / 78; Pulse 80; Resp 18; Pulse Ox 95% on R/A; ph 19:15 BP 143 / 75; Pulse 68; Resp 18; Temp 98.5; Pulse Ox 97% ; pf1 20:00 BP 156 / 74; Pulse 65; Resp 17; Pulse Ox 96% ; pf1 21:00 BP 158 / 94; Pulse 77; Resp 16; Pulse Ox 96% ; pf1 22:00 BP 140 / 77; Pulse 67; Resp 17; Pulse Ox 97% ; pf1 16:26 Body Mass Index 30.41 (90.72 kg, 172.72 cm) ld1 MDM: 16:26 Patient medically screened. rn 01/07 20:40 Order name: SARS RAPID as6 01/07 20:54 Order name: CBC with Diff kl 01/07 20:54 Order name: Basic Metabolic Panel kl 01/07 20:54 Order name: PT-INR kl 01/07 20:54 Order name: Ptt, Activated kl 01/08 01:00 Order name: SARS-COV-2 Antigen Rapid EDMS 01/08 01:00 Order name: CBC with Automated Diff EDMS 01/08 01:00 Order name: Protime (+INR) EDMS 01/08 01:00 Order name: PTT, Activated Partial Thromb EDMS 01/08 01:00 Order name: Basic Metabolic Panel EDMS 01/08 02:48 Order name: Protime (+INR) EDMS 01/08 02:50 Order name: PTT, Activated Partial Thromb EDMS 01/08 03:50 Order name: Urine Dipstick-Ancillary EDMS 01/08 04:35 Order name: Urinalysis EDMS 01/07 16:31 Order name: Extremity Venous Uni Ltd US rn 01/07 16:31 Order name: Lower Extremity Artery Uni Ltd rn 01/08 01:02 Order name: US EDMS 01/08 06:19 Order name: CBC with Automated Diff EDMS 01/08 06:32 Order name: Basic Metabolic Panel EDMS 01/08 06:32 Order name: Phosphorus EDMS 01/08 06:32 Order name: Magnesium EDMS 01/08 08:25 Order name: US EDMS 01/08 10:20 Order name: Ptt, Activated ph 01/08 10:42 Order name: Glucose, Ancillary Testing EDMS 01/08 11:28 Order name: PTT, Activated Partial Thromb EDMS Administered Medications: No medications were administered Disposition Summary: 01/07/22 20:00 Hospitalization Ordered Hospitalization Status: Observation rn Provider: Clark Hendricks rn Condition: Stable rn Problem: new rn Symptoms: have improved rn Bed/Room Type: Standard rn Location: Telemetry/MedSurg (observation)(01/08/22 09:48) bd Room Assignment: 410(01/08/22 09:48) bd Diagnosis - Arterial thrombus of right arm rn Forms: - Medication Reconciliation Form rn - SBAR form rn Signatures: Dispatcher [employer] EDNC Marleni Painter Oniel Aguilar MD MD rn Hall, Patricia, RN RN ph Garcia, Cindy RN RN Joanne Dean RN RN ld1 Corrections: (The following items were deleted from the chart) 20:45 20:00 Telemetry/MedSurg (observation) rn cg 20:45 20:00 rn cg 01/08 09:48 01/07 20:45 [facility] ER HOLD cg bd 01/08 09:48 01/07 20:45 ERHOLD- cg bd
--- NOTE | 2022-01-08 01:01 | ER ---
Nurse's Notes [facility] Name: Margarita Munoz Age: 51 yrs Sex: Female : 1970 Arrival Date: 01/07/2022 Time: 16:17 Bed 6 Private MD: Diagnosis: Arterial thrombus of right arm Presentation: 01/07 16:26 Chief complaint: Patient states: Ultrasound done today at Dr. Box's office - ld1 ultrasound revealed blood clot to right arm in artery. Pt reports having heart cath done on 12/31/2021 - c/o pain to right wrist/forearm. Coronavirus screen: At this time, the client does not indicate any symptoms associated with coronavirus-19. Ebola Screen: No symptoms or risks identified at this time. Initial Sepsis Screen: Does the patient meet any 2 criteria? No. Patient's initial sepsis screen is negative. Does the patient have a suspected source of infection? No. Patient's initial sepsis screen is negative. Risk Assessment: Do you want to hurt yourself or someone else? Patient reports no desire to harm self or others. Onset of symptoms was January 07, 2022. 16:26 Method Of Arrival: Ambulatory ld1 16:26 Acuity: SAHRA 3 ld1 Triage Assessment: 16:27 General: Appears in no apparent distress. comfortable, Behavior is calm, cooperative, ld1 appropriate for age. Pain: Complains of pain in right arm Pain does not radiate. Pain currently is 6 out of 10 on a pain scale. Quality of pain is described as throbbing, Pain began gradually. EENT: No signs and/or symptoms were reported regarding the EENT system. Neuro: Level of Consciousness is awake, alert, obeys commands, Oriented to person, place, time, situation. Cardiovascular: Capillary refill < 3 seconds Patient's skin is warm and dry. Respiratory: Airway is patent Respiratory effort is even, unlabored. GI: Abdomen is round non-distended. : No signs and/or symptoms were reported regarding the genitourinary system. Derm: No signs and/or symptoms reported regarding the dermatologic system. Musculoskeletal: No signs and/or symptoms reported regarding the musculoskeletal system. 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 - Social history:: Smoking status: Patient denies any tobacco usage or history of. Patient/guardian denies using alcohol. - Family history:: not pertinent. - Hospitalizations: : No recent hospitalization is reported. Screenin:38 Abuse screen: Denies threats or abuse. Denies injuries from another. Nutritional ph screening: No deficits noted. Tuberculosis screening: No symptoms or risk factors identified. Fall Risk None identified. Assessment: 16:49 General: Appears in no apparent distress. comfortable, well groomed, Behavior is calm, ph cooperative, appropriate for age. Pain: Complains of pain in right arm. Neuro: Level of Consciousness is awake, alert, obeys commands, Oriented to person, place, time, situation. Cardiovascular: Denies chest pain, shortness of breath, Capillary refill < 3 seconds in bilateral fingers Patient's skin is warm and dry. Edema is 1+ to right forearm and right wrist. Respiratory: Airway is patent Respiratory effort is even, unlabored, Respiratory pattern is regular, symmetrical. GI: No signs and/or symptoms were reported involving the gastrointestinal system. Derm: Skin is healthy with good turgor, Skin is pink, warm \T\ dry. Musculoskeletal: Circulation, motion, and sensation intact. Range of motion: intact in all extremities. 19:00 Reassessment: Patient appears in no apparent distress at this time. pf1 19:00 General: Appears in no apparent distress. comfortable, well groomed, well developed, pf1 Behavior is calm, cooperative, appropriate for age, quiet. Pain: Complains of pain in right hand/thumb, right forearm Pain currently is 6 out of 10 on a pain scale. Pain began Patient stated pain to right arm for 1 week, S/P heart catherization. Neuro: No deficits noted. Cardiovascular: No deficits noted. Respiratory: No deficits noted. GI: No deficits noted. : No deficits noted. EENT: No deficits noted. Derm: No deficits noted. Musculoskeletal: No deficits noted. Circulation, motion, and sensation intact. Capillary refill < 3 seconds, in bilateral fingers. Range of motion: intact in all extremities. Vital Signs: 16:26 BP 141 / 85; Pulse 87; Resp 18; Temp 98.6(O); Pulse Ox 96% on R/A; Weight 90.72 kg; ld1 Height 5 ft. 8 in. (172.72 cm); Pain 6/10; 16:50 BP 128 / 78; Pulse 80; Resp 18; Pulse Ox 95% on R/A; ph 19:15 BP 143 / 75; Pulse 68; Resp 18; Temp 98.5; Pulse Ox 97% ; pf1 20:00 BP 156 / 74; Pulse 65; Resp 17; Pulse Ox 96% ; pf1 21:00 BP 158 / 94; Pulse 77; Resp 16; Pulse Ox 96% ; pf1 22:00 BP 140 / 77; Pulse 67; Resp 17; Pulse Ox 97% ; pf1 16:26 Body Mass Index 30.41 (90.72 kg, 172.72 cm) ld1 ED Course: 16:17 Patient arrived in ED. mr 16:26 Oniel Aguilar MD is Attending Physician. rn 16:27 Triage completed. ld1 16:27 Arm band placed on right wrist. ld1 16:38 Patient has correct armband on for positive identification. Bed in low position. Call ph light in reach. Side rails up X 1. Pulse ox on. NIBP on. Door closed. Noise minimized. Warm blanket given. 16:51 Masha Veronica, RN is Primary Nurse. ph 19:00 No provider procedures requiring assistance completed. pf1 19:45 Missed attempt(s): 20 gauge in left wrist. pf1 19:55 Clark Hendricks MD is Hospitalizing Provider. rn 20:20 Inserted saline lock: 20 gauge in left antecubital area, using aseptic technique. pf1 ,using aseptic technique. US guided IV inserted per Sigrid Jeronimo RN. Blood collected. Accessed. 01/08 00:27 Patient admitted, IV remains in place. pf1 01:09 Extremity Venous Uni Ltd US In Process Unspecified. EDMS 01:09 Lower Extremity Artery Uni Ltd US In Process Unspecified. EDMS Administered Medications: No medications were administered Medication: 01/07 16:38 VIS not applicable for this client. ph Outcome: 20:00 Decision to Hospitalize by Provider. rn 01/08 00:26 Condition: stable pf1 00:27 Admitted to ER Hold. Please see [facility] for further documentation. pf1 11:51 Patient left the ED. db Signatures: Dispatcher [employer] EDNJ Tran QuevedoOniel cruz MD MD rn Hall, Patricia, RN RN Joanne Garcia RN RN ld1 Marianne Paige RN RN db Cherelle mckeon RN RN pf1 Corrections: (The following items were deleted from the chart) 01/07 16:29 16:26 Chief complaint: Patient states: Ultrasound done today at Dr. Box's office - ld1 ultrasound revealed blood clot to right arm. Pt reports having heart cath done on 12/31/2021 - c/o pain to right wrist/forearm. ld1 16:50 16:49 Cardiovascular: Denies chest pain, shortness of breath, Capillary refill < 3 ph seconds in bilateral fingers Patient's skin is warm and dry. ph
[2022-01-08] MEDS ORDERED: D10W 125 ML IV PRN (01:32)
[2022-01-08] MEDS ORDERED: ACETAMINOPHEN 325 MG TABLET PO PRN (02:00)
[2022-01-08 02:01] VITALS: BMI 30.3
[2022-01-08 03:50] LABS: Urine Blood Negative (Negative); Urine Glucose Negative (Negative); Urine Protein Negative (Negative); Urine Specific Gravity 1.025 (1.005-1.030); Urine pH 6.5 (5.0-7.0)
[2022-01-08 04:35] LABS: Specific Gravity 1.029 (1.005-1.030); Urine Bilirubin NEGATIVE (Negative); Urine Blood Negative (Negative); Urine Clarity Clear (Clear); Urine Color Yellow (Yellow); Urine Glucose NEGATIVE (Negative); Urine Protein TRACE (Negative); Urine Urobilinogen Normal (Normal); Urine pH 6.5 (5.0-7.0)
[2022-01-08 06:10] LABS: Absolute Lymphocytes (CBC) 2.8 K/uL (0.7-4.9); Hematocrit 37.4 % (36.0-45.0); Lymphocytes % 42.1 % (15.3-44.8); MCV 86.9 fL (80-100); MPV 7.7 fL (7.6-11.3)
[2022-01-08 06:26] LABS: Magnesium 2.3 mg/dL (1.8-2.4); Phosphorus 2.7 mg/dL (2.5-4.9); Potassium 3.7 mmol/L (3.5-5.1)
[2022-01-08] MEDS ORDERED: PNEUMOCOCCAL VACCINE 0.5 ML IMVAC ONE (08:00)
[2022-01-08] MEDS ORDERED: INFLUENZA VACCINE (for 6+ mo) 0.5 ML DOSE IMVAC ONE (08:00)
--- NOTE | 2022-01-08 08:25 | RAD REPORT ---
EXAM DESCRIPTION: US - Upper Ext Artery Uni Lamberto - 01/07/2022 8:29 pm CLINICAL HISTORY: recent cath Arm pain and swelling COMPARISON: UPPER EXTREMITY VENOUS UNILATE dated 01/07/2022 FINDINGS: Grayscale, color and power Doppler interrogation of the right upper extremity arterial sys tem was performed. Triphasic waveforms seen throughout the right upper extremity arterial system. In the region of the r ight radial artery at the level the wrist, no arterial flow could be demonstrated sonographically. Th is may indicate arterial occlusion in this region. Elsewhere there is no indication of arterial occlu hollis seen.
[2022-01-08] MEDS: INSULIN -REGULAR HUMAN 50 UNIT/0.5 ML ML SQ SCH ×4 (10:42→21:00)
[2022-01-08] MEDS: HEPARIN/D5W 25,000 UNIT/500 ML BAG IV PRN (17:00)
[2022-01-09] MEDS: INSULIN -REGULAR HUMAN 50 UNIT/0.5 ML ML SQ SCH (07:30)
[2022-01-09 10:28] VITALS: O2SAT 100
[2022-01-09] MEDS: HEPARIN/D5W 25,000 UNIT/500 ML BAG IV PRN (12:00)
--- NOTE | 2022-01-09 16:16 | RAD REPORT ---
EXAM DESCRIPTION: US - Upper Ext Artery Uni Lamberto - 01/09/2022 4:05 pm CLINICAL HISTORY: radial artery thrombosis? Arm pain, swelling COMPARISON: Upper Ext Artery Uni Lamberto dated 01/07/2022 FINDINGS: Doppler interrogation of the right upper extremity arterial system was performed. On today's study there is mild monophasic flow seen in the right radial artery. There continues to be echogenic material within the vessel. Right brachial artery is unremarkable. IMPRESSION: Mild monophasic flow seen in the right radial artery at the wrist on today's study, charlotte cating mild improvement since prior study in the degree of thrombosis.
[2022-01-09 16:29] VITALS: BP 136/79; TEMP 98.4
--- NOTE | 2022-01-10 15:11 | CON ---
The patient is 51, was admitted to Dr. Hendricks's service on 01/07/2022 with right radial artery thrombos is following a recent catheterization. History Of Present Illness: Ms. Munoz was sent from Dr. Dahl to the hospital because of right r adial thrombosis. She was placed on heparin and by the time I saw her, she had good pulses in the [facility] radial artery. Her right hand was not discolored anymore and she was pretty asymptomatic. Past Medical History: Includes hypertension, diabetes, congestive heart failure, depression. Allergies: NONE. Review of Systems: Negative. Social History: Negative. Family History: Negative. Medications: At home include metoprolol, Lasix, and iron. Physical Examination: Vital Signs: Stable, afebrile. HEENT: Negative. Neck: Supple without bruit. Chest: Clear. Cardiac: Normal. Abdomen: Benign. Extremities: Revealed no clubbing, cyanosis, or edema. Right radial artery has good pulses. Right hand appeared normal. Impression And Plan: Right radial thrombosis, resolved on heparin. I think Dr. Dahl prefers to ke ep her in the hospital for another 24 hours on heparin after which she can go home. We would probabl y just put her on aspirin after that. She will come back to the office and get a Doppler of her righ t upper extremity in the near future. Her other problems including diabetes, chronic diastolic conge stive heart failure, and depression are stable. We will continue to follow her. GEOFF/YISEL Voice ID: [id number] Report ID: [id number]
== END 2022-01-09 17:25 | disposition home or self-care (01) | DRG 300 ==
LOC: ER 16:15 → ERHOLD 19:58 → 4TH 01-08 10:16
PROVIDERS: ADMIT Hospitalist; ATTEND Hospitalist
DX: I74.2 Embolism and thrombosis of arteries of the upper extremities (principal); I50.32 Chronic diastolic (congestive) heart failure; I11.0 Hypertensive heart disease with heart failure; E11.9 Type 2 diabetes mellitus without complications; F32.A Depression, unspecified; I25.10 Atherosclerotic heart disease of native coronary artery without angina pectoris; D64.9 Anemia, unspecified; Z95.5 Presence of coronary angioplasty implant and graft; Z79.84 Long term (current) use of oral hypoglycemic drugs; Z90.49 Acquired absence of other specified parts of digestive tract; Z79.899 Other long term (current) drug therapy; Z20.822 Contact with and (suspected) exposure to COVID-19
CPT/HCPCS: 36415; 80048; 81001; 81003; 82947; 83735; 84100; 85025; 85610; 85730; 87811; 93931; 93971; 99285; J1644

== ENCOUNTER 2024-10-02 18:24 | Inpatient (IN) | payer BC ==
--- NOTE | 2024-10-02 19:19 | RAD REPORT ---
EXAMINATION: ONE VIEW CHEST XR CLINICAL INDICATION: Female, 54 years old.,CHEST PAIN TECHNIQUE: Frontal chest projection is submitted. Examination is limited by patient positioning and t echnique. COMPARISON: 11/27/2021 FINDINGS: The lungs are well inflated and clear. No pneumothorax or sizable effusion. The heart is normal in s ize. Mediastinal contours are unremarkable. IMPRESSION: No acute intrathoracic abnormalities.
[2024-10-02 20:05] LABS: Absolute Lymphocytes (CBC) 3.4 K/uL (0.7-4.9); Hematocrit 40.5 % (36.0-45.0); Hemoglobin 13.9 g/dL (12.0-15.0); MCH 27.2 pg (27.0-35.0); MCHC 34.3 g/dL (32.0-36.0); MCV 79.4 fL (80-100); MPV 7.7 fL (7.6-11.3); Nucleated RBC Absolute Count 0.0 (0-0); Nucleated Red Blood Cells % 0.1 % (0-0); RBC Red Blood Cell Count 5.10 M/uL (3.86-4.86); White Blood Count 11.00 thou/uL (4.3-10.9)
[2024-10-02 20:28] LABS: ALT/SGPT 28.0 U/L (13-56); AST/SGOT 14.0 U/L (15-37); Albumin 3.7 g/dL (3.4-5.0); Albumin/Globulin Ratio 0.9 (1.1-1.8); Alkaline Phosphatase 81.0 U/L (45-117); Anion Gap 9.1 mEq/L (5.0-15.0); BUN Blood Urea Nitrogen 12.0 mg/dL (7-18); Bilirubin Indirect, Calculated 1.0 mg/dL (0.2-0.8); Globulin 4.1 g/dL (2.3-3.5); Glucose Level 101.0 mg/dL (74-106); Magnesium 1.5 mg/dL (1.6-2.4); NT PRO-BNP 19.0 pg/mL (<125); Troponin High Sensitivity 5.4 pg/mL (<58.9)
[2024-10-02 20:30] LABS: Potassium 2.1 mEq/L (3.5-5.1)
[2024-10-02 20:44] LABS: Blood Morphology Comment NOTED (NOT SEEN); White Blood Cell Scan OK (OK)
[2024-10-02 20:45] LABS: Ovalocytes SLIGHT
--- NOTE | 2024-10-02 20:47 | EDPHYS ---
Physician Documentation [facility] Name: Margarita Munoz Age: 54 yrs Sex: Female : 1970 Arrival Date: 10/02/2024 Time: 18:24 Bed 14 Private MD: ED Physician Luis Fernando Blunt HPI: 10/02 20:11 This 54 yrs old Female presents to ER via Ambulatory with complaints of Dizziness, kb IRREGULAR EKG. 20:11 Patient is a 54-year-old female who presents for chest pain, palpitations, shortness of kb breath and dizziness that started last night. States she was seen by [facility] urgent [facility] 2 days ago for falls, had blood work completed and was told that her potassium was low and calcium was high. They recommend that she go into the ER at that time but she did not want to miss work so she declined. They gave her oral potassium to take instead. Patient took 40 mEq of potassium last night, started having chest pain, shortness of breath, palpitations afterwards. States took another 20 mEq this morning and symptoms continued throughout today. [facility] called to check on her today and she told them what symptoms she was having so they told her to come back to the clinic. Patient had blood work repeated and they told her she needed to come to the emergency department because she might not wake up tomorrow.. 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 - Infectious Disease History:: Denies. - Social history:: Smoking status: Patient reports the use of cigarette tobacco products, smokes one-half pack cigarettes per day. ROS: 20:10 Constitutional: As per HPI kb Exam: 20:10 Constitutional: This is a well developed, well nourished patient who is awake, alert, kb and in no acute distress. Head/Face: Normocephalic, atraumatic. ENT: Moist Mucous membranes Cardiovascular: Regular rate Respiratory: Respirations even and unlabored. No increased work of breathing. Talking in full sentences Abdomen/GI: Soft, non-tender. No distention Skin: Warm, dry with normal turgor. Normal color. MS/ Extremity: Pulses equal, no cyanosis. Neurovascular intact. Full, normal range of motion. Neuro: Awake and alert, GCS 15, oriented to person, place, time, and situation. 20:10 ECG was reviewed by the Attending Physician. Vital Signs: 18:40 BP 122 / 86; Pulse 69; Resp 17; Temp 97.3; Pulse Ox 98% ; Weight 65.77 kg; Height 5 ft. ll1 8 in. ; Pain 0/10; 21:00 BP 114 / 76; Pulse 65; Resp 20; Pulse Ox 100% on R/A; kj2 22:00 BP 101 / 85; Pulse 61; Resp 18; Pulse Ox 100% on R/A; kj2 23:20 BP 111 / 72; Pulse 63; Resp 20; Pulse Ox 100% on R/A; kj2 18:40 Body Mass Index 22.05 (65.77 kg, 172.72 cm) ll1 18:40 Pain Scale: Adult ll1 MDM: 18:44 Medical Screening Exam initiated kb 20:11 Data reviewed: vital signs, nurses notes. kb 20:43 Differential diagnosis: abnormal EKG, acute myocardial infarction, congestive heart kb failure abnormal electrolytes. Consideration of Admission/Observation Patient was admitted/placed on observation. Escalation of care including admission/observation considered. Management of patient was discussed with the following: Hospitalist: Dr Abreu accepts pt for admission. External Records Reviewed: Outpatient labs: labs from next level reviewed. potassium 2.7. Counseling: I had a detailed discussion with the patient and/or guardian regarding the historical points, exam findings, and any diagnostic results supporting the discharge/admit diagnosis, lab results, radiology results, the need for further work-up and treatment in the hospital. 10/02 18:44 Order name: Basic Metabolic Panel; Complete Time: 20:34 kb 10/02 18:44 Order name: CBC with Diff; Complete Time: 20:46 kb 10/02 18:44 Order name: D-Dimer; Complete Time: 20:15 kb 10/02 18:44 Order name: LFT's; Complete Time: 20:34 kb 10/02 18:44 Order name: Magnesium; Complete Time: 20:34 kb 10/02 18:44 Order name: NT PRO-BNP; Complete Time: 20:34 kb 10/02 18:44 Order name: Troponin HS; Complete Time: 20:34 kb 10/02 20:09 Order name: CBC Smear Scan; Complete Time: 20:46 EDMS 10/02 21:46 Order name: Thyroid Stimulating Hormone; Complete Time: 22:11 EDMS 10/02 21:46 Order name: Comprehensive Metabolic Panel EDMS 10/02 21:46 Order name: Comprehensive Metabolic Panel EDMS 10/02 21:46 Order name: Magnesium EDMS 10/02 21:46 Order name: Magnesium EDMS 10/02 21:46 Order name: Magnesium EDMS 10/02 21:46 Order name: Troponin High Sensitivity EDMS 10/02 21:46 Order name: Troponin High Sensitivity EDMS 10/02 18:44 Order name: XRAY Chest (1 view); Complete Time: 19:22 kb 10/02 18:44 Order name: EKG; Complete Time: 18:45 kb 10/02 21:46 Order name: CONS Physician Consult EDMS 10/02 18:44 Order name: Cardiac monitoring; Complete Time: 20:01 kb 10/02 18:44 Order name: EKG - Nurse/Tech; Complete Time: 19:14 kb 10/02 18:44 Order name: IV Saline Lock; Complete Time: 20:00 kb 10/02 18:44 Order name: Labs collected and sent; Complete Time: 20:00 kb 10/02 18:44 Order name: O2 Per Protocol; Complete Time: 20:00 kb 10/02 18:44 Order name: O2 Sat Monitoring; Complete Time: 20:00 kb EC:10 Rate is 67 beats/min. Rhythm is regular. QRS [place] is Normal. MT interval is normal at kb 158 msec. QRS interval is normal at 96 msec. QT interval is prolonged at 566 msec. Administered Medications: 21:18 Drug: Potassium Chloride IV 20 mEq IV at calculated rate once; administer over 1-2 kj2 hours Route: IV; Rate: calculated rate; Site: left forearm; 23:14 Follow up: IV Status: Completed infusion; IV Intake: 100ml kj2 21:18 Drug: Potassium PO Effervescent Tablet 50 mEq PO once; dissolve in 4 ounces of water or kj2 juice Route: PO; 22:27 Follow up: Response: No adverse reaction kj2 23:13 Drug: Magnesium Sulfate IVPB 1 grams IVPB once over 1 hrs Route: IVPB; Infused Over: 1 kj2 hrs; Site: left forearm; 10/03 00:07 Follow up: Response: No adverse reaction; IV Status: Infusion continued upon admission; kj2 IV Intake: 60ml Disposition Summary: 10/02/24 20:46 Hospitalization Ordered Notes: Hospitalization Status: Observation kb Provider: Krystal Abreu Location: Telemetry/MedSurg (observation) kb Condition: Stable kb Problem: new kb Symptoms: are unchanged kb Bed/Room Type: Standard Room Assignment: 208(10/02/24 22:10) kmf Diagnosis - Hypokalemia kb - Chest pain, unspecified kb Forms: - Medication Reconciliation Form kb - SBAR form kb - Leadership Thank You Letter kb Signatures: Dispatcher [employer] EDBritney Yo FNP-C FNP-Matthieu Branch RN RN ll1 Jessica Reece kmf Elizabeth Miller, DOMINGA RN kj2 Corrections: (The following items were deleted from the chart) 10/02 21:48 21:46 Magnesium ordered. EDWV EDWV 22:10 20:46 kb kmf
--- NOTE | 2024-10-02 20:47 | ER ---
Nurse's Notes [facility] Name: Margarita Munoz Age: 54 yrs Sex: Female : 1970 Arrival Date: 10/02/2024 Time: 18:24 Bed 14 Private MD: Diagnosis: Hypokalemia;Chest pain, unspecified Presentation: 10/02 18:40 Chief complaint: Patient states: Falling more than usual for 3 weeks. Potassium was low ll1 at Urgent Care and had abnormal EKG, so they sent her in for further evaluation. Coronavirus screen: Client denies travel out of the [place] in the last 14 days. At this time, the client does not indicate any symptoms associated with coronavirus-19. Ebola Screen: Patient denies travel to an Ebola-affected area in the 21 days before illness onset. Initial Sepsis Screen: Does the patient meet any 2 criteria? No. Patient's initial sepsis screen is negative. Does the patient have a suspected source of infection? No. Patient's initial sepsis screen is negative. Risk Assessment: Do you want to hurt yourself or someone else? Patient reports no desire to harm self or others. Onset of symptoms was September 09, 2024. 18:40 Method Of Arrival: Ambulatory ll1 18:40 Acuity: SAHRA 3 ll1 Triage Assessment: 18:40 General: Appears in no apparent distress. Behavior is calm, cooperative, appropriate ll1 for age. Pain:. Neuro: Reports dizziness. Cardiovascular: Reports chest pain, fatigue. MEAL COOK: 10/03 00:08 Not kj2 Historical: - Allergies: 10/02 18:40 No Known Allergies; ll1 - PMHx: 18:40 Anemia; Congestive heart failure; depressive disorder; diabetes mellitus; diabetes ll1 mellitus; - PSHx: 18:40 Appendectomy; section; Cholecystectomy; Elbow; ll1 18:43 gastric bypass; ll1 - Immunization history:: Adult Immunizations up to date. - Infectious Disease History:: Denies. - Social history:: Smoking status: Patient reports the use of cigarette tobacco products, smokes one-half pack cigarettes per day. Screenin:59 [facility] ED Fall Risk Assessment (Adult) History of falling in the last 3 months, kj2 including since admission No falls in past 3 months (0 pts) Confusion or Disorientation No (0 pts) Intoxicated or Sedated No (0 pts) Impaired Gait No (0 pts) Mobility Assist Device Used No (0 pt) Altered Elimination No (0 pt) Score/Fall Risk Level 0 - 2 = Low Risk Maintained a safe environment, Hourly rounding (assess needs \T\ fall precautionary measures) done. Abuse screen: Denies threats or abuse. Denies injuries from another. Nutritional screening: No deficits noted. Tuberculosis screening: No symptoms or risk factors identified. Assessment: 19:56 General: Appears in no apparent distress. Behavior is cooperative. Pain: Denies pain. kj2 Neuro: Level of Consciousness is awake, alert, Oriented to person, place, time, situation. Cardiovascular: Patient's skin is warm and dry. Respiratory: Airway is patent Respiratory effort is unlabored. GI: No signs and/or symptoms were reported involving the gastrointestinal system. : No signs and/or symptoms were reported regarding the genitourinary system. 21:00 Reassessment: Patient appears in no apparent distress at this time. Patient and/or kj2 family updated on plan of care and expected duration. Pain level reassessed. Patient is alert, oriented x 3, equal unlabored respirations, skin warm/dry/pink. 22:00 Reassessment: Patient appears in no apparent distress at this time. Patient and/or kj2 family updated on plan of care and expected duration. Pain level reassessed. Patient is alert, oriented x 3, equal unlabored respirations, skin warm/dry/pink. 23:00 Reassessment: Patient appears in no apparent distress at this time. Patient and/or kj2 family updated on plan of care and expected duration. Pain level reassessed. Patient is alert, oriented x 3, equal unlabored respirations, skin warm/dry/pink. Vital Signs: 18:40 BP 122 / 86; Pulse 69; Resp 17; Temp 97.3; Pulse Ox 98% ; Weight 65.77 kg; Height 5 ft. ll1 8 in. ; Pain 0/10; 21:00 BP 114 / 76; Pulse 65; Resp 20; Pulse Ox 100% on R/A; kj2 22:00 BP 101 / 85; Pulse 61; Resp 18; Pulse Ox 100% on R/A; kj2 23:20 BP 111 / 72; Pulse 63; Resp 20; Pulse Ox 100% on R/A; kj2 18:40 Body Mass Index 22.05 (65.77 kg, 172.72 cm) ll1 18:40 Pain Scale: Adult ll1 ED Course: 18:29 Patient arrived in ED. gl 18:42 Triage completed. ll1 18:43 Britney Cueto FNP-C is PHCP. kb 18:43 Luis Fernando Blunt is Attending Physician. kb 19:13 XRAY Chest (1 view) In Process Unspecified. EDMS 19:14 Arm band placed on. ll1 19:55 Elizabeth Miller, RN is Primary Nurse. kj2 19:59 Patient has correct armband on for positive identification. Bed in low position. Call kj2 light in reach. Side rails up X 1. Adult w/ patient. Provided Education on: call light. 20:00 Inserted saline lock: 20 gauge in left forearm, using aseptic technique. Blood kj2 collected. Flushed with 10 mL NS. 20:45 Krystal Abreu MD is Hospitalizing Provider. kb 10/03 00:08 No provider procedures requiring assistance completed. Patient admitted, IV remains in kj2 place. Administered Medications: 10/02 21:18 Drug: Potassium Chloride IV 20 mEq IV at calculated rate once; administer over 1-2 kj2 hours Route: IV; Rate: calculated rate; Site: left forearm; 23:14 Follow up: IV Status: Completed infusion; IV Intake: 100ml kj2 21:18 Drug: Potassium PO Effervescent Tablet 50 mEq PO once; dissolve in 4 ounces of water or kj2 juice Route: PO; 22:27 Follow up: Response: No adverse reaction kj2 23:13 Drug: Magnesium Sulfate IVPB 1 grams IVPB once over 1 hrs Route: IVPB; Infused Over: 1 kj2 hrs; Site: left forearm; 10/03 00:07 Follow up: Response: No adverse reaction; IV Status: Infusion continued upon admission; kj2 IV Intake: 60ml Medication: 10/02 20:01 VIS not applicable for this client. kj2 Intake: 23:14 IV: 100ml; Total: 100ml. kj2 10/03 00:07 IV: 60ml; Total: 160ml. kj2 Outcome: 10/02 20:46 Decision to Hospitalize by Provider. kb 10/03 00:02 Patient left the ED. jb4 00:08 Admitted to Med/surg accompanied by nurse, via wheelchair, room 208, kj2 00:08 Condition: stable 00:08 Instructed on the need for admit, Signatures: Dispatcher [employer] EDBritney Yo, BRANCH SERVICES MANAGER-C BRANCH SERVICES MANAGER-Russ Yoo, RN RN jb4 Matthieu Acosta, RN RN ll1 Elizabeth Miller RN RN kj2 Prerna Medeiros, Reg Reg gl Corrections: (The following items were deleted from the chart) 10/02 18:43 18:40 BP 122 / 86; Pulse 69bpm; Resp 17bpm; Pulse Ox 98%; Temp 97.3F; ll1 ll1
[2024-10-02] MEDS ORDERED: KCL 20 MEQ/100 mL IVPB 100 ML IV ONE (21:04)
[2024-10-02] MEDS ORDERED: POTASSIUM 25 MEQ EFFERV TAB ONE (21:04)
[2024-10-02] MEDS ORDERED: NA CHLORIDE 0.9% 250 ML ONE (21:04)
[2024-10-02] MEDS ORDERED: MAGNESIUM SULFATE 1 gm IVPB 1 GM/100 ML BAG IV ONE (21:05)
[2024-10-02] MEDS: Magnesium Sulfate 2gm IVPB 2 G/50 ML BAG IV ONE (21:33)
[2024-10-02] MEDS ORDERED: ONDANSETRON 4 MG/2 ML VIAL IV PRN (21:41)
[2024-10-02] MEDS ORDERED: ALBUTEROL 2.5 MG/3 ML NEB SOL NEB PRN (21:41)
[2024-10-02] MEDS ORDERED: MORPHINE 2 MG/ML SYR IV PRN (21:41)
[2024-10-02] MEDS ORDERED: ACETAMINOPHEN 500 MG TAB PO PRN (21:41)
--- NOTE | 2024-10-02 21:41 | P.HP ---
Certification for Inpatient Patient admitted to: Observation With expected LOS: <2 Midnights Patient will require the following post-hospital care: None Practitioner: I am a practitioner with admitting privileges, knowledge of patient current condition, hospital course, and medical plan of care. Services: Services provided to patient in accordance with Admission requirements found in Title 42 Section 412.3 of the Code of Federal Regulations Patient History Date of Service: 10/02/24 Reason for admission: Chest pain, History of Present Illness: 54-year-old female with history of HTN, DM, diastolic CHF follows with cardiology in [place], on Bumex as well as potassium Hiral ran out of potassium since the last 4 months, developed weakness and was seen at urgent care yesterday and prescribed potassium potassium then was 2.7. She states after taking potassium she developed chest pain as well as palpitation. Chest pain was left-sided rated at about 4 out of 10 chest pain persisted overnight and at this morning resolved. She developed palpitation and feeling of generalized weakness this morning and she went back to the urgent care and repeat potassium was down to 2.1 and patient was sent to the emergency room. On arrival in the ED, vital signs were stable, EKG showed normal sinus rhythm with mild QTc of 406, no ST segment changes, chest x-ray was clear, urinalysis pending, laboratory workup shows magnesium 1.5, calcium of 11.1 as well as potassium of 2.1. CBC shows elevated WBC of 11. Patient denies any nausea vomiting she denies any fever or chills. She denies any dysuria. She has been admitted for potassium replacement as well as magnesium replacement Allergies No Known Allergies Allergy (Verified 12/28/21 10:30) Home Medications: Escitalopram [Lexapro*] 20 mg PO DAILY 11/15/20 Ferrous Sulfate 325 mg PO DAILY 12/28/21 Furosemide [Lasix] 40 mg PO DAILY 12/28/21 Metformin ER [Glucophage ER*] 500 mg PO DAILY 12/28/21 Potassium Chloride 20 meq PO DAILY 12/28/21 Apixaban [Eliquis] 5 mg PO BID #60 tablet 01/09/22 Aspirin [Aspirin EC 81 MG] 81 mg PO DAILY #30 tab 01/09/22 - Past Medical/Surgical History Diabetic: Yes -: Type 2 Diabetes, Non-Insulin Dependent -: CAD -: CHF -: Anemia -: Depression -: Cholecystectomy -: Cardiac cath with stent placement -: Appendectomy -: Psychosocial/ Personal History: Patient lives at home with her . - Family History Father -: Stroke Mother -: Stroke Brother -: Heart disease - Social History Smoking Status: Never smoker Smoking therapy provided: No Patient receptive to therapy: No Alcohol use: No CD- Drugs: No Caffeine use: Yes Review of Systems General: Weakness, Malaise Cardiovascular: Chest Pain, Palpitations Physical Examination - Physical Exam General: Alert, In no apparent distress, Oriented x3, Cooperative HEENT: Atraumatic, Normocephalic, PERRLA Neck: Supple, 2+ carotid pulse no bruit, JVD not distended Respiratory: Clear to auscultation bilaterally, Normal air movement Cardiovascular: Normal pulses, Regular rate/rhythm, Normal S1 S2 Gastrointestinal: Normal bowel sounds, Soft and benign, Non-distended, W/out succussion splash, No ascites Musculoskeletal: No clubbing, No swelling Integumentary: No rashes, No breakdown, No significant lesion Neurological: Normal speech, Normal strength at 5/5 x4 extr, Sensation intact, Cranial nerves 3-12 intact - Studies Laboratory Data (last 24 hrs) 10/02/24 10/02/24 19:50 19:50 WBC 11.00 H Hgb 13.9 Hct 40.5 Plt Count 607 H Sodium 137 Potassium 2.1 L* BUN 12 Creatinine 0.89 Glucose 101 Magnesium 1.5 L Total Bilirubin 1.2 H AST 14 L ALT 28 Alkaline Phosphatase 81 Assessment and Plan - Problems (Diagnosis) (1) Hypokalemia due to excessive renal loss of potassium Current Visit: Yes Status: Acute (2) Hypomagnesemia Current Visit: Yes Status: Acute - Plan Impression Symptomatic hypomagnesemia/hypokalemiadue to Bumex use Atypical chest pain Hypertension Diastolic CHF Leukocytosis Plan Admit patient to observation Replace magnesium with 2 g May need p.o. magnesium at discharge Hold Bumex for now Replace potassium with KCl every 4 x 3 Follow repeat potassium in a.m. Atypical chest pain likely musculoskeletal, currently resolved Negative troponin, continue serial sets Prior cardiac cath shows no abnormality 3 years ago Can resume Bumex at discharge Lovenox for DVT prophylaxis Obtain UA to rule out UTI since mild leukocytosis Full code Possible DC in a.m. - Advance Directives Does patient have a Living Will: No Does patient have a Durable POA for Healthcare: No Time Spent Managing Pts Care (In Minutes): 70
[2024-10-02] MEDS: POTASSIUM 25 MEQ EFFERV TAB PO SCH (22:00)
[2024-10-03 00:32] VITALS: O2SAT 100
[2024-10-03 02:10] VITALS: BMI 22.3
[2024-10-03 05:57] LABS: ALT/SGPT 26 U/L (13-56); AST/SGOT < 10 U/L (15-37); Albumin 3.0 g/dL (3.4-5.0); Albumin/Globulin Ratio 0.9 (1.1-1.8); Alkaline Phosphatase 68 U/L (45-117); Anion Gap 9.5 mEq/L (5.0-15.0); BUN Blood Urea Nitrogen 8 mg/dL (7-18); Globulin 3.4 g/dL (2.3-3.5); Glucose Level 83 mg/dL (74-106); Troponin High Sensitivity 5.4 pg/mL (<58.9)
[2024-10-03 05:58] LABS: Potassium 2.5 mEq/L (3.5-5.1)
[2024-10-03] MEDS: PANTOPRAZOLE 40MG TABLET PO SCH (06:24)
[2024-10-03 06:43] LABS: Sqamous Epithelial <5 /HPF (None Seen); Urine Crystals Unidentified Few /HPF (None Seen); Urine Micro Reflex YN NO BILL MICROSCOPIC; Urine WBC Clump Rare /HPF (None Seen); Urine Yeast (Budding) Trace /HPF (None Seen)
[2024-10-03] MEDS: NA CHLORIDE 0.9% 1,000 ML ONE (08:01)
[2024-10-03] MEDS: ASPIRIN EC 81 MG TAB PO SCH (08:02)
[2024-10-03] MEDS: KCL 20 MEQ/100 mL IVPB 20 MEQ/100 ML BAG IV SCH (08:02)
[2024-10-03] MEDS: ESCITALOPRAM 20 MG TAB PO SCH ×2 (08:02→21:37)
[2024-10-03] MEDS ORDERED: ALBUTEROL 2.5 MG/3 ML NEB SOL NEB PRN (08:10)
[2024-10-03] MEDS: POTASSIUM 25 MEQ EFFERV TAB PO SCH (12:16)
--- NOTE | 2024-10-03 12:34 | CON ---
Date of Consultation: 10/03/2024 Chief Complaint: Leg cramps. Reason For Consultation: Hypokalemia. History Of Present Illness: This is a 54-year-old woman with past medical history of diabetes, hyper tension, congestive heart failure, taking the Bumex. The patient presented for cramps and weakness. She was taking potassium supplement until April, as per sister the patient's medications were change d around that time. The patient has stopped taking potassium since April and then she had blood work since that time. Upon presentation to the ER, the patient's calcium was 11.1, magnesium 1.5, potass ium 2.1. She was admitted for further evaluation. Home Medications: Lexapro, furosemide, metformin, potassium, Eliquis. Past Medical History: CHF, diabetes, congestive heart failure. Family History: Father and mother have stroke. Social History: Denies tobacco or recreational drug abuse. Review of Systems: Positive for weakness, malaise, leg cramps. Physical Examination: Vital Signs: Temperature 98, pulse rate 56, blood pressure 106/63. General: Awake, alert, oriented x3, not in distress. Neck: Supple. No elevated JVD. Heart: Regular rate and rhythm. Normal S1, S2. Chest: Clear to auscultation bilaterally. No rales or wheezes. Abdomen: Soft and nontender. Extremities: No edema. Physical Examination: Sodium 139, potassium 2.5, BUN 8, creatinine 0.6. Assessment And Plan: 1. Hypokalemia, likely due to diuretic and hypomagnesemia. Magnesium supplementation. We will start on potassium chloride 50 mEq t.i.d. Continue IV replacement. 2. Hypomagnesemia, replaced. We will start the patient on daily magnesium oxide. 3. Congestive heart failure, looks euvolemic. Hold the Bumex at this time. 4. Mild hypercalcemia likely due to hydration and hypomagnesemia, resolved. Thanks for allowing me to participate in the patient's care. Total time spent 75 minutes including d ocumentation, reviewing labs, and placing orders. JUAN CARLOS/YISEL Voice ID: [id number] Report ID: [id number]
--- NOTE | 2024-10-03 13:59 | P.PN ---
Subjective Date of Service: 10/03/24 Chief Complaint: Chest pain, Patient denies any new complaint. Potassium level remain low. Physical Examination - Vital Signs Temperature: 98.1 F Blood Pressure: 120/73 Pulse: 59 Respirations: 18 Pulse Ox (%): 98 - Studies Laboratory Data (last 24 hrs) 10/02/24 10/02/24 10/02/24 19:50 19:50 19:50 WBC 11.00 H Hgb 13.9 Hct 40.5 Plt Count 607 H Sodium 137 Potassium 2.1 L* BUN 12 Creatinine 0.89 Glucose 101 Magnesium Cancelled 1.5 L Total Bilirubin 1.2 H AST 14 L ALT 28 Alkaline Phosphatase 81 Assessment And Plan - Plan Physical examination General: Alert and oriented x3, NAD, HEENT: Conjunctiva not pale, anicteric sclera Neck: Supple, no elevated JVD Heart: Heart sounds 1 and 2 normal, regular rhythm, normal rate, no pedal edema Lungs: Clear to auscultation bilaterally, adequate breath sounds bilaterally, no rhonchi or crackles. Abdomen: Soft, nondistended, nontender, normal bowel sounds. Extremities: No tenderness, no deformity Skin: Normal skin turgor, no rash, no nodules or ulcers. Neuro: No focal motor deficit. Normal speech. Psychiatry: Normal mood, no agitation. Diagnosis Symptomatic hypomagnesemia/hypokalemiadue to Bumex use Atypical chest pain Chronic diastolic CHF Plan: Continue potassium and magnesium replacements. Troponin trended negative. Chest pain is atypical and ACS ruled out. Hold Bumex Continue Farxiga. Continue to monitor BMP and correct electrolytes as needed. DVT prophylaxis:
[2024-10-03] MEDS: KCL 20 MEQ/100 mL IVPB 100 ML IV ONE (16:36)
[2024-10-03] MEDS: ROSUVASTATIN 10 MG TAB PO SCH (22:11)
[2024-10-04] MEDS: POTASSIUM 25 MEQ EFFERV TAB PO ONE (00:01)
[2024-10-04 05:16] LABS: Absolute Lymphocytes (CBC) 2.8 K/uL (0.7-4.9); Hematocrit 35.1 % (36.0-45.0); Hemoglobin 12.4 g/dL (12.0-15.0); MCH 28.3 pg (27.0-35.0); MCHC 35.4 g/dL (32.0-36.0); MCV 80.1 fL (80-100); MPV 7.5 fL (7.6-11.3); Nucleated RBC Absolute Count 0.0 (0-0); Nucleated Red Blood Cells % 0.0 % (0-0); RBC Red Blood Cell Count 4.38 M/uL (3.86-4.86); White Blood Count 10.20 thou/uL (4.3-10.9)
[2024-10-04 05:28] LABS: Anion Gap 4.7 mEq/L (5.0-15.0); BUN Blood Urea Nitrogen 8.0 mg/dL (7-18); Glucose Level 88.0 mg/dL (74-106); Magnesium 1.8 mg/dL (1.6-2.4); Potassium 3.7 mEq/L (3.5-5.1)
[2024-10-04 08:16] VITALS: BP 111/68; TEMP 98
--- NOTE | 2024-10-04 08:41 | P.DS ---
Admission Date: 10/04/24 Discharge Date: 10/04/24 Disposition: ROUTINE DISCHARGE Discharge Condition: FAIR Reason for Admission: Chest pain, Brief History of Present Illness: 54-year-old female with history of HTN, DM, diastolic CHF follows with cardiology in [place], on Bumex as well as potassium ran out of potassium since the last 4 months, developed weakness and was seen at urgent care yesterday and prescribed potassium. Her potassium level then was 2.7. She states after taking potassium she developed chest pain as well as palpitation. She went back to the urgent care due to experiencing generalized weakness and repeat potassium was down to 2.1 and patient was sent to the emergency room. On arrival in the ED, vital signs were stable, EKG showed normal sinus rhythm with mild QTc of 406, no ST segment changes, chest x-ray was clear, laboratory workup shows magnesium 1.5, calcium of 11.1 as well as potassium of 2.1. CBC shows elevated WBC of 11. Patient was hospitalized for potassium and magnesium replacement. Hospital Course: Diagnosis Symptomatic hypomagnesemia/hypokalemiadue to Bumex use Atypical chest pain Chronic diastolic CHF Patient admitted to the medical floor and potassium and magnesium replaced by IV and oral route and Bumex held. Hypokalemia and hypomagnesia got corrected. Patient was asymptomatic during the hospital stay. Troponin was trended due to a brief episode of chest pain prior to presentation. Troponin trended negative. ACS ruled out. Patient currently asymptomatic, stable vitals. She is deemed stable for discharge. Vital Signs/Physical Exam: Temp Pulse Resp BP Pulse Ox 98.0 F 55 18 111/68 99 10/04/24 08:00 10/04/24 08:00 10/04/24 08:00 10/04/24 08:00 10/04/24 08:00 General: Alert, In no apparent distress, Oriented x3 HEENT: Mucous membr. moist/pink, Sclerae nonicteric Neck: Supple, JVD not distended Respiratory: Clear to auscultation bilaterally, Normal air movement Cardiovascular: No edema, Normal S1 S2 Gastrointestinal: Normal bowel sounds, Soft and benign, Non-distended, No tenderness Musculoskeletal: No swelling Integumentary: No rashes, No cyanosis Neurological: Normal speech, Normal strength at 5/5 x4 extr, Cranial nerves 3-12 intact Lymphatics: No axilla or inguinal lymphadenopathy Laboratory Data at Discharge: WBC 10.20 thou/uL (4.3-10.9) 10/04/24 04:52 Hgb 12.4 g/dL (12.0-15.0) 10/04/24 04:52 Hct 35.1 % (36.0-45.0) L 10/04/24 04:52 Plt Count 481 thou/uL (152-406) H 10/04/24 04:52 Sodium 140 mEq/L (136-145) 10/04/24 04:52 Potassium 3.7 mEq/L (3.5-5.1) D 10/04/24 04:52 BUN 8 mg/dL (7-18) 10/04/24 04:52 Creatinine 0.53 mg/dL (0.55-1.02) L 10/04/24 04:52 Glucose 88 mg/dL (74-106) 10/04/24 04:52 Magnesium 1.8 mg/dL (1.6-2.4) 10/04/24 04:52 Total Bilirubin 1.1 mg/dL (0.2-1.0) H 10/03/24 05:12 AST < 10 U/L (15-37) L 10/03/24 05:12 ALT 26 U/L (13-56) 10/03/24 05:12 Alkaline Phosphatase 68 U/L (45-117) 10/03/24 05:12 Home Medications: Escitalopram [Lexapro*] 20 mg PO BEDTIME 11/15/20 Potassium Chloride 20 meq PO DAILY 12/28/21 Bumetanide [Bumex*] 1 tab PO BID 10/03/24 Dapagliflozin Propanediol [Farxiga] 1 tab PO DAILY 10/03/24 Omeprazole 1 tab PO DAILY 10/03/24 Rosuvastatin [Crestor*] 1 tab PO DAILY 10/03/24 Magnesium Oxide [Mag 0X*] 400 mg PO DAILY #30 tab 10/04/24 New Medications: Magnesium Oxide [Mag 0X*] 400 mg PO DAILY #30 tab Physician Discharge Instructions: Please follow up with your motor coach supervisor as soon as possible to readjust your medications. Your motor coach supervisor may decide if you need a stress test. Diet: AHA Activity: Ad alexandro Followup: NONE,NONE [Primary Care Provider] - 1 Week Time spent managing pt's care (in minutes): 34
[2024-10-04] MEDS ORDERED: ROSUVASTATIN 10 MG TAB PO SCH (09:00)
[2024-10-04] MEDS: Dapagliflozin Propanediol [Farxiga] 10 MG Tablet *PT OWN MED PO SCH (09:00)
[2024-10-04] MEDS: ENOXAPARIN 40 MG/0.4 ML SQ SCH (09:03)
[2024-10-04] MEDS: PANTOPRAZOLE 40MG TABLET PO SCH (09:03)
[2024-10-04] MEDS: MAGNESIUM OXIDE 400 MG TAB PO SCH (09:03)
== END 2024-10-04 09:25 | disposition home or self-care (01) | DRG 641 ==
LOC: ER 18:24 → ERHOLD 21:41 → 2ND 23:37 → OBSVTOIN 10-04 08:14
PROVIDERS: ADMIT Internal Medicine; ATTEND Internal Medicine
DX: E87.6 Hypokalemia (principal); I50.32 Chronic diastolic (congestive) heart failure; I11.0 Hypertensive heart disease with heart failure; E83.42 Hypomagnesemia; E83.52 Hypercalcemia; E11.9 Type 2 diabetes mellitus without complications; F17.210 Nicotine dependence, cigarettes, uncomplicated; T50.1X5A Adverse effect of loop [high-ceiling] diuretics, initial encounter; Z98.84 Bariatric surgery status; Z79.82 Long term (current) use of aspirin; Z79.01 Long term (current) use of anticoagulants; Z90.49 Acquired absence of other specified parts of digestive tract; Z79.899 Other long term (current) drug therapy
CPT/HCPCS: 36415; 71045; 80048; 80053; 80076; 81001; 82947; 83735; 83880; 84132; 84443; 84484; 85025; 85379; 93005; 96365; 96366; 99285; G0378; J1650; J3475; J3480; J7030; J7050

== ENCOUNTER 2024-10-09 18:56 | Observation (INO) | payer BC ==
[2024-10-09] MEDS ORDERED: ASPIRIN 81 MG CHEWABLE TABLET ONE (19:18)
[2024-10-09 19:55] LABS: Absolute Lymphocytes (CBC) 3.0 K/uL (0.7-4.9); Hematocrit 36.0 % (36.0-45.0); Hemoglobin 12.3 g/dL (12.0-15.0); MCH 28.0 pg (27.0-35.0); MCHC 34.2 g/dL (32.0-36.0); MCV 81.8 fL (80-100); MPV 8.2 fL (7.6-11.3); Nucleated RBC Absolute Count 0.0 (0-0); Nucleated Red Blood Cells % 0.1 % (0-0); RBC Red Blood Cell Count 4.41 M/uL (3.86-4.86); White Blood Count 9.60 thou/uL (4.3-10.9)
[2024-10-09 19:58] LABS: PT Prothrombin Time 12.9 SECONDS (10-13.0); Protime INR 1.15
[2024-10-09 20:16] LABS: ALT/SGPT 21 U/L (13-56); Albumin 3.2 g/dL (3.4-5.0); Albumin/Globulin Ratio 0.8 (1.1-1.8); Alkaline Phosphatase 68 U/L (45-117); Anion Gap 11.7 mEq/L (5.0-15.0); BUN Blood Urea Nitrogen 11 mg/dL (7-18); Bilirubin Indirect, Calculated 0.5 mg/dL (0.2-0.8); Globulin 4.0 g/dL (2.3-3.5); Glucose Level 90 mg/dL (74-106); Magnesium 2.0 mg/dL (1.6-2.4); NT PRO-BNP 114 pg/mL (<125); Potassium 2.7 mEq/L (3.5-5.1); Troponin High Sensitivity 4.3 pg/mL (<58.9)
[2024-10-09 20:18] LABS: AST/SGOT < 10 U/L (15-37)
[2024-10-09] MEDS ORDERED: POTASSIUM 25 MEQ EFFERV TAB ONE (20:34)
[2024-10-09] MEDS ORDERED: KCL 20 MEQ/100 mL IVPB 100 ML IV ONE (20:34)
[2024-10-09] MEDS ORDERED: NA CHLORIDE 0.9% 500 ML ONE (20:35)
--- NOTE | 2024-10-09 21:09 | RAD REPORT ---
Procedure: Chest Single View HISTORY: Chest pain COMPARISON: October 02, 2024 FINDINGS: The lungs appear clear of acute infiltrate. No significant pleural effusion noted. The heart is normal size. A battery pack overlies the left chest. IMPRESSION: No acute abnormality is displayed.
--- NOTE | 2024-10-09 21:56 | ER ---
Nurse's Notes [facility] Name: Margarita Munoz Age: 54 yrs Sex: Female : 1970 Arrival Date: 10/09/2024 Time: 18:56 Bed 7 Private MD: Diagnosis: Hypokalemia;Chest pain, unspecified;Dizziness;Essential (primary) hypertension Presentation: 10/09 19:00 Chief complaint: Patient states: C/O intermittent central CP and abdominal pain that ar8 began 1 week ago. Patient states it started again today at \R\1600. Coronavirus screen: At this time, the client does not indicate any symptoms associated with coronavirus-19. Ebola Screen: No symptoms or risks identified at this time. 19:00 Method Of Arrival: Ambulatory ar8 19:00 Initial Sepsis Screen: Does the patient meet any 2 criteria? No. Patient's initial ar8 sepsis screen is negative. Does the patient have a suspected source of infection? No. Patient's initial sepsis screen is negative. Risk Assessment: Do you want to hurt yourself or someone else? Patient reports no desire to harm self or others. Onset of symptoms was October 09, 2024 at 16:00. 19:00 Acuity: SAHRA 3 ar8 19:00 Acuity: SAHRA 2 ar8 Triage Assessment: 19:09 General: Appears uncomfortable, Behavior is cooperative. Pain: Complains of pain in ar8 mid-sternal area. Historical: - Allergies: 19:09 No Known Allergies; ar8 - PMHx: 19:09 Anemia; Congestive heart failure; depressive disorder; diabetes mellitus; diabetes ar8 mellitus; - PSHx: 19:09 Appendectomy; section; Cholecystectomy; Elbow; Gastric Bypass; ar8 - Immunization history:: Adult Immunizations not up to date. - Infectious Disease History:: Denies. - Social history:: Smoking status: unknown. Screenin:44 [facility] ED Fall Risk Assessment (Adult) History of falling in the last 3 months, mf3 including since admission No falls in past 3 months (0 pts) Confusion or Disorientation No (0 pts) Intoxicated or Sedated No (0 pts) Impaired Gait No (0 pts) Mobility Assist Device Used No (0 pt) Altered Elimination No (0 pt) Score/Fall Risk Level 0 - 2 = Low Risk Oriented to surroundings, Maintained a safe environment, Hourly rounding (assess needs \T\ fall precautionary measures) done. Abuse screen: Denies threats or abuse. Denies injuries from another. Nutritional screening: No deficits noted. Tuberculosis screening: No symptoms or risk factors identified. Never had TB. Assessment: 19:44 General: Appears in no apparent distress. Pain: Complains of pain in chest Pain mf3 currently is 6 out of 10 on a pain scale. 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 Neuro: Level of Consciousness is awake, alert, obeys commands, Oriented to person, place, time, situation, Appropriate for age. Cardiovascular: Reports chest pain, Heart tones S1 S2 Capillary refill. Respiratory: No deficits noted. Airway is patent. 20:40 Reassessment: Patient and/or family updated on plan of care and expected duration. Pain mf3 level reassessed. Patient is alert, oriented x 3, equal unlabored respirations, skin warm/dry/pink. Patient states symptoms have not improved. 20:40 Pain: Pain does not radiate. mf3 Vital Signs: 19:00 BP 146 / 83; Pulse 63; Resp 16 S; Pulse Ox 97% on R/A; Weight 65.77 kg; Height 5 ft. 8 ar8 in. ; Pain 5/10; 19:47 BP 120 / 71; Pulse 58; Resp 18; Temp 98.9; Pulse Ox 97% on R/A; mf3 20:49 BP 141 / 76; Pulse 66; Resp 17; Pulse Ox 97% on R/A; mf3 22:15 BP 114 / 72; Pulse 61; Resp 18; Temp 98.3; Pulse Ox 98% on R/A; mf3 23:00 BP 105 / 61; Pulse 62; Resp 14; Pulse Ox 98% on R/A; al5 19:00 Body Mass Index 22.05 (65.77 kg, 172.72 cm) ar8 19:00 Pain Scale: Adult ar8 Vitals: 19:47 Cardiac Rhythm Assessment Sinus dolores. mf3 22:15 Cardiac Rhythm Assessment Regular. mf3 [place] Coma Score: 22:15 Eye Response: spontaneous(4). Motor Response: obeys commands(6). Verbal Response: mf3 oriented(5). Total: 15. ED Course: 18:59 Patient arrived in ED. ts1 19:09 Triage completed. ar8 19:09 Arm band placed on right wrist. ar8 19:10 Miller Haque DO is Attending Physician. ms3 19:44 Patient has correct armband on for positive identification. Bed in low position. Call mf3 light in reach. Side rails up X2. Client placed on continuous cardiac and pulse oximetry monitoring. NIBP monitoring applied. leadlighter on. Pulse ox on. 19:44 No provider procedures requiring assistance completed. mf3 19:44 Inserted saline lock: 24 gauge in right hand, using aseptic technique. mf3 19:44 Patient maintains SpO2 saturation greater than 95% on room air. mf3 20:29 XRAY Chest (1 view) In Process Unspecified. EDMS 20:39 Margot Tuttle, DOMINGA is Primary Nurse. mf3 21:55 Alden Aguilar MD is Hospitalizing Provider. ms3 23:38 Provided Education on: Need for admission . mf3 23:38 Patient admitted, IV remains in place. mf3 Administered Medications: 19:41 Drug: Aspirin PO Chewable Tablet 324 mg PO once; 81 mg tablets x 4 Route: PO; mf3 20:01 Follow up: Response: No adverse reaction mf3 20:42 Drug: Potassium PO Effervescent Tablet 50 mEq PO once; dissolve in 4 ounces of water or mf3 juice Route: PO; 22:12 Follow up: Response: No adverse reaction mf3 20:42 Drug: Potassium Chloride IV 20 mEq IV at calculated rate once; administer over 1-2 mf3 hours Route: IV; Rate: calculated rate; Site: right hand; 23:40 Follow up: Response: No adverse reaction; IV Status: Completed infusion mf3 Medication: 19:44 VIS not applicable for this client. mf3 Outcome: 21:56 Decision to Hospitalize by Provider. ms3 23:39 Admitted to Med/surg accompanied by nurse, accompanied by tech, via wheelchair, room mf3 205, with chart, 23:39 Condition: stable 23:39 Instructed on the need for admit, 23:39 Patient left the ED. 3 Signatures: Dispatcher [employer] EDAR Miller Haque DO DO ms3 Charlene Batista PAS PAS ts1 Whitley Oakley RN RN al5 John Zhong RN RN ar8 Margot Tuttle, RN RN mf3
--- NOTE | 2024-10-09 21:56 | EDPHYS ---
Physician Documentation [facility] Name: Margarita Munoz Age: 54 yrs Sex: Female : 1970 Arrival Date: 10/09/2024 Time: 18:56 Bed 7 Private MD: ED Physician Miller Haque HPI: 10/09 23:13 This 54 yrs old Female presents to ER via Ambulatory with complaints of Chest Pain, ms3 Dizziness. 23:13 54-year-old female with past medical history of diastolic heart failure, ms3 hyperlipidemia, anemia, depression, diabetes presents to the emergency department for chest pain has been ongoing for 1 week intermittently and has been constant for the last 2 hours. Patient notes she was admitted last week to the hospital for hypokalemia. Patient states her discomfort today is located centrally without radiation. Patient denies any alleviating or inciting factors. Patient endorses nausea. Patient denies vomiting, shortness of breath, diaphoresis.. Historical: - Allergies: 19:09 No Known Allergies; ar8 - PMHx: 19:09 Anemia; Congestive heart failure; depressive disorder; diabetes mellitus; diabetes ar8 mellitus; - PSHx: 19:09 Appendectomy; section; Cholecystectomy; Elbow; Gastric Bypass; ar8 - Immunization history:: Adult Immunizations not up to date. - Infectious Disease History:: Denies. - Social history:: Smoking status: unknown. ROS: 23:13 Constitutional: Negative for fever, and chills. ms3 23:13 Respiratory: Negative for shortness of breath, cough, wheezing, and pleuritic chest pain, Abdomen/GI: Negative for abdominal pain, nausea, vomiting, diarrhea, and constipation, MS/Extremity: Negative for injury and deformity, Skin: Negative for injury, rash, and discoloration, 23:13 Cardiovascular: Positive for chest pain, Exam: 21:42 ECG was reviewed by the Attending Physician. ms3 23:13 Constitutional: This is a well developed, well nourished patient who is awake, alert, ms3 and in no acute distress. Chest/axilla: Normal chest wall appearance and motion. Nontender with no deformity. Cardiovascular: Regular rate and rhythm with a normal S1 and S2. No gallops, murmurs, or rubs. Normal PMI, no JVD. No pulse deficits. Respiratory: Lungs have equal breath sounds bilaterally, clear to auscultation and percussion. No rales, rhonchi or wheezes noted. No increased work of breathing, no retractions or nasal flaring. Abdomen/GI: Soft, non-tender, with normal bowel sounds. No distension or tympany. No guarding or rebound. No evidence of tenderness throughout. Skin: Warm, dry with normal turgor. Normal color with no rashes, no lesions, and no evidence of cellulitis. MS/ Extremity: Pulses equal, no cyanosis. Neurovascular intact. Full, normal range of motion. Vital Signs: 19:00 BP 146 / 83; Pulse 63; Resp 16 S; Pulse Ox 97% on R/A; Weight 65.77 kg; Height 5 ft. 8 ar8 in. ; Pain 5/10; 19:47 BP 120 / 71; Pulse 58; Resp 18; Temp 98.9; Pulse Ox 97% on R/A; mf3 20:49 BP 141 / 76; Pulse 66; Resp 17; Pulse Ox 97% on R/A; mf3 22:15 BP 114 / 72; Pulse 61; Resp 18; Temp 98.3; Pulse Ox 98% on R/A; mf3 23:00 BP 105 / 61; Pulse 62; Resp 14; Pulse Ox 98% on R/A; al5 19:00 Body Mass Index 22.05 (65.77 kg, 172.72 cm) ar8 19:00 Pain Scale: Adult ar8 [place] Coma Score: 22:15 Eye Response: spontaneous(4). Motor Response: obeys commands(6). Verbal Response: mf3 oriented(5). Total: 15. MDM: 19:10 Medical Screening Exam initiated ms3 23:13 Differential diagnosis: abnormal EKG, acute myocardial infarction, anxiety, coronary ms3 artery disease chest wall pain. HEART Score: History: Slightly Suspicious (0), ECG: Normal (0), Age: > 45 and < 65 years (1), Risk Factors: > or = 3 Risk factors for atherosclerotic disease (2), [Hypercholesterolemia] [DM] Troponin: < or = 1 x Normal Limit (0), Total Score = 3. The patient was given aspirin in the Emergency Department. Data reviewed: vital signs, nurses notes, lab test result(s), EKG, radiologic studies, and as a result, I will admit patient. Consideration of Admission/Observation Patient was admitted/placed on observation. Management of patient was discussed with the following: Hospitalist: Michelle Flanagan. I considered the following discharge prescriptions or medication management in the emergency department Medications were administered in the Emergency Department. See MAR. Independent interpretation of the following test(s) in the Emergency Department EKG: See my EKG interpretation above X-Ray: My interpretation is Chest x-ray image reviewed by me does not reveal pulmonary edema or pneumonia. Counseling: I had a detailed discussion with the patient and/or guardian regarding the historical points, exam findings, and any diagnostic results supporting the discharge/admit diagnosis, lab results, radiology results, the need for further work-up and treatment in the hospital. ED course: Discussed observation with patient secondary to potassium of 2.7. Potassium repleted in the emergency department oral and IV. EKG does not show acute ischemia, troponins negative. Patient understands agrees with plan. All questions were answered.. 10/09 19:10 Order name: Basic Metabolic Panel ms3 10/09 19:10 Order name: CBC with Diff; Complete Time: 20:24 ms3 10/09 19:10 Order name: LFT's ms3 10/09 19:10 Order name: Magnesium ms3 10/09 19:10 Order name: NT PRO-BNP ms3 10/09 19:10 Order name: PT-INR; Complete Time: 20:24 ms3 10/09 19:10 Order name: Troponin HS ms3 10/09 22:38 Order name: Potassium EDMS 10/09 22:44 Order name: CBC with Automated Diff EDMS 10/09 22:44 Order name: CBC with Automated Diff EDMS 10/09 22:44 Order name: Troponin High Sensitivity EDMS 10/09 22:44 Order name: Troponin High Sensitivity EDMS 10/09 22:44 Order name: Troponin High Sensitivity EDMS 10/09 22:44 Order name: Troponin High Sensitivity EDMS 10/09 22:44 Order name: Troponin High Sensitivity EDMS 10/09 19:10 Order name: XRAY Chest (1 view); Complete Time: 21:22 ms3 10/09 22:44 Order name: Echo with Doppler EDMS 10/09 22:44 Order name: EKG Electrocardiogram EDMS 10/09 22:44 Order name: EKG Electrocardiogram EDMS 10/09 22:44 Order name: EKG Electrocardiogram EDMS 10/09 22:44 Order name: EKG Electrocardiogram EDMS 10/09 19:10 Order name: Cardiac monitoring; Complete Time: 19:41 ms3 10/09 19:10 Order name: EKG - Nurse/Tech; Complete Time: 19:41 ms3 10/09 19:10 Order name: IV Saline Lock; Complete Time: 19:41 ms3 10/09 19:10 Order name: Labs collected and sent; Complete Time: 19:41 ms3 10/09 19:10 Order name: O2 Per Protocol; Complete Time: 19:41 ms3 10/09 19:10 Order name: O2 Sat Monitoring; Complete Time: 19:41 ms3 EC:42 Rate is 57 beats/min. Rhythm is regular. QRS [place] is Normal. [place] interval is normal. QRS ms3 interval is normal. Clinical impression: Sinus bradycardia. Interpreted by me. Reviewed by me. Administered Medications: 19:41 Drug: Aspirin PO Chewable Tablet 324 mg PO once; 81 mg tablets x 4 Route: PO; mf3 20:01 Follow up: Response: No adverse reaction mf3 20:42 Drug: Potassium PO Effervescent Tablet 50 mEq PO once; dissolve in 4 ounces of water or mf3 juice Route: PO; 22:12 Follow up: Response: No adverse reaction mf3 20:42 Drug: Potassium Chloride IV 20 mEq IV at calculated rate once; administer over 1-2 mf3 hours Route: IV; Rate: calculated rate; Site: right hand; 23:40 Follow up: Response: No adverse reaction; IV Status: Completed infusion mf3 Disposition Summary: 10/09/24 21:56 Hospitalization Ordered Notes: Hospitalization Status: Observation ms3 Provider: Alden Aguilar ms3 Location: Telemetry/MedSurg (observation) ms3 Condition: Stable ms3 Problem: new ms3 Symptoms: are unchanged ms3 Bed/Room Type: Standard ms3 Room Assignment: 205(10/09/24 22:44) rv1 Diagnosis - Hypokalemia ms3 - Chest pain, unspecified ms3 - Dizziness ms3 - Essential (primary) hypertension ms3 Forms: - Medication Reconciliation Form ms3 - SBAR form ms3 - Leadership Thank You Letter ms3 Signatures: Dispatcher [employer] Miller Roca DO DO ms3 Rhina Mendoza rv1 John Zhong, RN RN ar8 Margot Tuttle, RN RN mf3 Corrections: (The following items were deleted from the chart) 19:11 19:11 Chest Single View+[email or web address] ordered. EDMS EDMS 22:44 21:56 ms3 rv1 23:17 23:13 ED course: Discussed observation with patient secondary to potassium of 2.7. ms3 Potassium repleted in the emergency department oral and IV. Patient understands agrees with plan. All questions were answered.. ms3
[2024-10-09] MEDS ORDERED: NITROGLYCERIN 0.4 MG/TAB SL PRN (22:37)
[2024-10-09] MEDS ORDERED: MORPHINE 4 MG/ML SYR IV PRN (22:37)
--- NOTE | 2024-10-09 22:47 | P.HP ---
Certification for Inpatient Patient admitted to: Observation With expected LOS: <2 Midnights Patient will require the following post-hospital care: None Practitioner: I am a practitioner with admitting privileges, knowledge of patient current condition, hospital course, and medical plan of care. Services: Services provided to patient in accordance with Admission requirements found in Title 42 Section 412.3 of the Code of Federal Regulations Patient History Date of Service: 10/09/24 Reason for admission: Hypokalemia, chest pain. History of Present Illness: Patient is a pleasant 53-year-old female with past medical history of diastolic CHF, gout, hypercholesteremia, depression, who presents the ER today complaining of chest pain and dizziness. Patient states while at home in the afternoon, she developed chest pain which she describes as aching, and sharp pain, states radiates to her back with associated mild shortness of breath and dizziness. Patient states she saw her skip loader this week, states she currently have a heart monitor provided to her by her skip loader, but she was not able to explain why the heart monitor was placed. Patient EKG sinus rhythm, troponin negative at this time. Patient potassium was 2.7.. During admission assessment, patient was fully awake, alert and oriented x 3, patient states her chest pain is relieved at this time, denies of any shortness of breath, patient was really concerned as to when she is going to be discharged home. Patient in no acute distress at this time. Allergies No Known Allergies Allergy (Verified 12/28/21 10:30) Home medications list reviewed: No Home Medications: Escitalopram [Lexapro*] 20 mg PO BEDTIME 11/15/20 Dapagliflozin Propanediol [Farxiga] 1 tab PO DAILY 10/03/24 Omeprazole 1 tab PO DAILY 10/03/24 Rosuvastatin [Crestor*] 1 tab PO DAILY 10/03/24 Magnesium Oxide [Mag 0X*] 400 mg PO DAILY #30 tab 10/04/24 - Past Medical/Surgical History Diabetic: No -: Type 2 Diabetes, Non-Insulin Dependent -: CAD -: CHF -: Anemia -: Depression -: Cholecystectomy -: Cardiac cath with stent placement -: Appendectomy -: Psychosocial/ Personal History: Patient lives at home with her . - Family History Father -: Stroke Mother -: Stroke Brother -: Heart disease - Social History Smoking Status: Never smoker Alcohol use: No CD- Drugs: No Caffeine use: Yes Place of Residence: Home Review of Systems 10-point ROS is otherwise unremarkable General: Other (Dizziness.) Cardiovascular: Chest Pain Physical Examination - Physical Exam General: Alert, In no apparent distress, Oriented x3 HEENT: Atraumatic, Normocephalic, PERRLA, Mucous membr. moist/pink, Sclerae nonicteric Neck: Supple, No LAD Respiratory: Clear to auscultation bilaterally, Normal air movement Cardiovascular: No edema, Normal pulses, Regular rate/rhythm, Normal S1 S2, No gallops, No rubs, No murmurs Capillary refill: <2 Seconds Gastrointestinal: Normal bowel sounds, Soft and benign, Non-distended, W/out hepatomegaly, No ascites, No tenderness, No masses, No rebound, No guarding Musculoskeletal: No clubbing, No swelling, No contractures, No erythema, No tenderness, No warmth Integumentary: No rashes, No breakdown, No significant lesion, No tenderness/swelling, No erythema, No warmth, No cyanosis Neurological: Normal gait, Normal speech, Normal strength at 5/5 x4 extr, Normal tone, Sensation intact, Cranial nerves 3-12 intact, Normal reflexes 2+, Normal affect Lymphatics: No axilla or inguinal lymphadenopathy - Studies Laboratory Data (last 24 hrs) 10/09/24 10/09/24 10/09/24 19:39 19:39 19:39 WBC 9.60 Hgb 12.3 Hct 36.0 Plt Count 503 H PT 12.9 INR 1.15 Sodium 138 Potassium 2.7 L BUN 11 Creatinine 0.84 Glucose 90 Magnesium 2.0 Total Bilirubin 0.7 AST < 10 L ALT 21 Alkaline Phosphatase 68 Female Exam - Breasts Breasts: Normal configuration Assessment and Plan - Plan Patient admitted observation with diagnosis of chest pain, and hypokalemia of 2.7. Patient EKG no ST abnormalities, initial troponin negative. (1)Chest pain/hypokalemia of 2.7. - Initiate chest pain protocol including nitroglycerin 0.4 mg sublingual as needed every 5 minutes x 3, morphine 4 mg IV every 4 hours as needed. -Serial troponin every 8 hours x 3. -EKG every 8 hours x 3. -Consult skip loader. -Telemetry. - Echocardiogram. -Potassium replacement. Patient received K-Lyte 50 mEq in ER p.o., and 20 KCl premix IV. -Order an additional 40 mEq KCl p.o. x1. Order 1 L IV NS +20 KCl x 1. Patient appears volume depleted, dry mucous membrane. -Follow-up CMP in the morning. (2)Chronic hypercholesteremia. -Continue home medication rosuvastatin 10 mg p.o. daily. (3)chronic depression. -Continue home medication Lexapro 20 mg p.o. daily. (4)Chronic GERD. -Continue omeprazole 40 mg p.o. daily. (5)Explained the entire treatment plan to the patient, and present at bedside, solicit questions answered and voiced understanding. Discharge Plan: Home - Advance Directives Does patient have a Living Will: No Does patient have a Durable POA for Healthcare: No - Code Status/Comfort Care Code Status Assessed: Yes Code Status: Full Code Critical Care: No Time Spent Managing Pts Care (In Minutes): 55
[2024-10-09 23:37] VITALS: BMI 22.6
[2024-10-10] MEDS: POTASSIUM CL IV SCH (00:24)
[2024-10-10] MEDS: NA CHLORIDE 0.9% IV SCH (00:24)
[2024-10-10] MEDS: POTASSIUM CL SA 10 MEQ TAB PO ONE (00:47)
[2024-10-10] MEDS: NS KCL 20MEQ 1,000 ML IV SCH (00:49)
[2024-10-10] MEDS ORDERED: NA CHLORIDE 0.9% 1,000 ML with POTASSIUM CL 20 MEQ IV SCH (01:00)
[2024-10-10] MEDS: PANTOPRAZOLE 40MG TABLET PO SCH (06:25)
[2024-10-10 06:51] LABS: Absolute Lymphocytes (CBC) 2.1 K/uL (0.7-4.9); Hematocrit 34.6 % (36.0-45.0); Hemoglobin 11.8 g/dL (12.0-15.0); MCH 27.9 pg (27.0-35.0); MCHC 34.0 g/dL (32.0-36.0); MCV 82.2 fL (80-100); MPV 8.8 fL (7.6-11.3); Nucleated RBC Absolute Count 0.0 (0-0); Nucleated Red Blood Cells % 0.1 % (0-0); RBC Red Blood Cell Count 4.21 M/uL (3.86-4.86); White Blood Count 10.70 thou/uL (4.3-10.9)
--- NOTE | 2024-10-10 07:13 | P.PN ---
Date of Service: 10/10/24 Subjective: Similar labs, symptoms compared to few days ago when she came here She continued bumex for a few days after discharge until she saw her armature winder repair on the Cardio told her to only to take bumex 0.5 PRN for leg swelling and that she needs to take potassium when taking bumex Also has court monitor on from her armature winder repair office and has a stress test planned in 3 weeks 2 falls in the last 2-3 weeks. Denies any prior issues ambulating prior to these episodes. Denies syncope. +nausea but denies diarrhea or vomiting no change in diet or habits last few months Physical Exam: GEN: Alert, oriented, NAD CV: Regular rate and rhythm, no edema Pulm:Nonlabored respirations on room air, clear bilaterally ABD: soft, nontender, nondistended Neuro: Normal speech, normal affect Problem List: Chest pain, Palpitations Hypokalemia Chronic diastolic CHF (HFpEF) Hypertension Hyperlipidemia Depression NIDDM2 Hx CAD Hx Radial artery thrombosis (2021) Hx Obstructive sleep apnea Hx lung nodules Hx bariatric surgery (~3 yrs ago) Chest pain, Palpitations Hypokalemia on admission, presents with chest pain and dizziness associated with shortness of breath, palpitations. Recent hospitalization with generalized weakness, critically low potassium. After taking potassium she developed chest pain, palpitations. Saw her armature winder repair in office on 10/08 and was told to hold bumex for now, Only to take 0.5 PRN for leg swelling and that she needs to take potassium when taking bumex security monitor and stress test ordered by her armature winder repair in office 2 days ago due to chest pain, palpitations. [facility] 2021 with normal coronary arteries low BP recently 90-100s at hospital and clinic per Cardiology notes from office CXR negative for any acute findings. Trend troponins - negative x3 Monitor on telemetry Cardio consult Echo ordered to eval EF / stenosis Continue asa 81mg, statin Monitor and replete electrolytes as needed Replace potassium; repeat potassium pending Chronic diastolic CHF (HFpEF) Hypertension Hyperlipidemia Depression NIDDM2 Hx CAD Hx Radial artery thrombosis (2021) Hx Obstructive sleep apnea Hx lung nodules Hx bariatric surgery (~3 yrs ago) confirm home meds, restart as appropriate resume home lexapro, protonix VTE: Lovenox Code: Full Dispo: Home Pending cardiac eval, potassium improves Time Spent Managing Pts Care (In Minutes): 55
[2024-10-10 08:20] VITALS: O2SAT 98
[2024-10-10] MEDS: ENOXAPARIN 40 MG/0.4 ML SQ SCH (08:31)
[2024-10-10] MEDS: ESCITALOPRAM 20 MG TAB PO SCH (08:31)
[2024-10-10] MEDS: ASPIRIN EC 81 MG TAB PO SCH (08:31)
[2024-10-10 12:16] LABS: ALT/SGPT 18 U/L (13-56); AST/SGOT < 10 U/L (15-37); Albumin 2.7 g/dL (3.4-5.0); Albumin/Globulin Ratio 0.8 (1.1-1.8); Alkaline Phosphatase 59 U/L (45-117); Anion Gap 9.5 mEq/L (5.0-15.0); BUN Blood Urea Nitrogen 8 mg/dL (7-18); Globulin 3.5 g/dL (2.3-3.5); Glucose Level 125 mg/dL (74-106); Magnesium 1.9 mg/dL (1.6-2.4); Potassium 3.5 mEq/L (3.5-5.1)
[2024-10-10] MEDS: NA CHLORIDE 0.9% 250 ML ONE ×2 (13:49→15:05)
[2024-10-10] MEDS: KCL 20 MEQ/100 mL IVPB 20 MEQ/100 ML BAG IV SCH (13:52)
[2024-10-10 16:41] VITALS: BP 108/57; TEMP 98.1
[2024-10-10] MEDS ORDERED: ROSUVASTATIN 10 MG TAB PO SCH (21:00)
--- NOTE | 2024-10-10 21:12 | CON ---
Date of Consultation: 10/10/2024 Reason For Consultation: Chest pain. History Of Present Illness: 54-year-old female with history of diastolic heart failure, follows up w [facility] security engineer in [place]; history of dyslipidemia, presented to the emergency room with chest pain as well as dizziness. It was at rest, aching, and sharp at that time, radiates to her back. No sig nificant shortness of breath, but she is slightly dizzy. She is apparently scheduled to have a stres s test in the near future. Past Medical History: As outlined above in the HPI. Medications: Refer reconciliation sheet for detailed list. Allergies: NO KNOWN DRUG ALLERGIES. Family History: No premature coronary artery disease or cancer. Social History: She does not smoke or drink. Does not use any drugs. Review of Systems: All systems reviewed and they are negative except as mentioned in the HPI. Physical Examination: Vital Signs: Reviewed. Head and Neck: Pupils are equal, reactive to light. Intact eye movements. No JVD. No cervical lym phadenopathy. Neck is supple. Thyroid is not enlarged. Lungs: Clear to auscultation bilaterally. No rhonchi, wheezing, or crackles. No accessory muscle u se. Heart: Regular rate and rhythm. No extra sounds. Abdomen: Soft, nontender. Bowel sounds positive. No organomegaly. No masses or hernia. No rigidi ty or rebound. Extremities: No edema, clubbing, cyanosis. Intact pulses. Skin: No rash. No nodules. Neurologic: Alert, awake, oriented x3. No acute focal deficits appreciated. Investigations: Cardiac enzymes x3 are negative. BUN is 8, creatinine 0.76. Hemoglobin is 11.8. Assessment/recommendation: 1. Chest pain: Cardiac enzymes are negative. Pain is atypical. Further workup is recommended. Drew n: Recommend outpatient stress test. Since she is pain-free now, she can be released and followed u p with her security engineer. She is scheduled to have stress test. 2. Dizziness, has monitor in place. This will be interrogated by her primary security engineer. 3. Diastolic heart failure, appears to be euvolemic. Low-salt diet and blood pressure control. 4. Dyslipidemia. Continue statin. Cardiology will sign off to follow up with her primary security engineer on outpatient basis. SR/JUDYL Voice ID: [id number] Report ID: [id number]
--- NOTE | 2024-10-11 11:53 | P.DS ---
Admission Date: 10/09/24 Discharge Date: 10/10/24 Disposition: ROUTINE DISCHARGE Discharge Condition: GOOD Reason for Admission: Hypokalemia, chest pain. Consultations: Cardiology - Dr. Dahl Brief History of Present Illness: 53yo F, PMH: diastolic CHF, gout, hypercholesteremia, depression, Patient presents the ER today complaining of chest pain and dizziness. Patient states while at home in the afternoon, she developed chest pain which she describes as aching, and sharp pain, states radiates to her back with associated mild shortness of breath and dizziness. Patient states she saw her plastic die maker apprentice this week, states she currently have a heart monitor provided to her by her plastic die maker apprentice, but she was not able to explain why the heart monitor was placed. Patient EKG sinus rhythm, troponin negative at this time. Patient potassium was 2.7.. During admission assessment, patient was fully awake, alert and oriented x 3, patient states her chest pain is relieved at this time, denies of any shor tness of breath, patient was really concerned as to when she is going to be discharged home. Patient in no acute distress at this time. Hospital Course: Problem List: Chest pain Hypokalemia, improved Chronic diastolic CHF (HFpEF) Hypertension Hyperlipidemia Depression NIDDM2 Hx CAD Hx Radial artery thrombosis (2021) Hx Obstructive sleep apnea Hx lung nodules Hx bariatric surgery (~3 yrs ago) Physician discharge instructions: Patient presented with chest pain and dizziness associated with palpitations. Lab work on admission noted low potassium (2.7) otherwise the rest of the her labs on admission were unremarkable. She was recently observed in hospital and discharged on 10/04 for similar issues/symptoms. Potassium at the time was much lower (2.1). At that time, it was felt her Bumex was causing her hypokalemia. After discharge she continued to take her bumex until she saw her plastic die maker apprentice in the office on the . She then developed chest pain / dizziness yesterday, so came to the ER. Her potassium was repleted / improved overnight. she reported feeling much better and was requesting to be discharged home today. Discussed since she is having a recurrence of the same issue within 1 week of a discharge, may be safer to stay an additional night to ensure her potassium levels remain in normal range. She can have low intracellular potassium. On the other hand, her potassium is not as low as it was last week, and she did continue to take the Bumex after discharge. Her risk of ongoing hypokalemia will be lower this time since she won't be taking bumex. She reported having several responsibilities outside of the hospital that she really had to take care of. Discussed risks/benefits of above, and she chose to go home, which is less than ideal, but I think reasonable since Bumex is the most likely culprit. Return precautions were given, and she expressed understanding. Cardiac work up this hospitalization was negative. EKG was without ischemic changes. Chest xray was negative for any acute findings. Troponins negative. 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 Advised patient to repeat blood work in a few days with PCP to ensure continued improvement/stability of potassium levelss Medications: Stop Bumex for now. Continue daily 20meq potassium for the next 5 days with repeat bloodwork Fri/ of this coming week (~3-4 days from now) continue other home meds as previously prescribed Follow up: PCP 3-5 days Cardiology as scheduled Please call to schedule / confirm appointments Physical Exam: GEN: Alert, oriented, NAD CV: Regular rate and rhythm, no edema Pulm:Nonlabored respirations on room air, clear bilaterally ABD: soft, nontender, nondistended Neuro: Normal speech, normal affect Vital Signs/Physical Exam: Temp Pulse Resp BP Pulse Ox 98.1 F 56 18 108/57 L 98 10/10/24 16:00 10/10/24 16:00 10/10/24 16:00 10/10/24 16:00 10/10/24 16:00 Laboratory Data at Discharge: WBC 10.70 thou/uL (4.3-10.9) 10/10/24 06:30 Hgb 11.8 g/dL (12.0-15.0) L 10/10/24 06:30 Hct 34.6 % (36.0-45.0) L 10/10/24 06:30 Plt Count 448 thou/uL (152-406) H 10/10/24 06:30 PT 12.9 SECONDS (10-13.0) 10/09/24 19:39 INR 1.15 10/09/24 19:39 Sodium 141 mEq/L (136-145) 10/10/24 11:40 Potassium 3.5 mEq/L (3.5-5.1) D 10/10/24 11:40 BUN 8 mg/dL (7-18) 10/10/24 11:40 Creatinine 0.76 mg/dL (0.55-1.02) 10/10/24 11:40 Glucose 125 mg/dL (74-106) H 10/10/24 11:40 Magnesium 1.9 mg/dL (1.6-2.4) 10/10/24 11:40 Total Bilirubin 0.7 mg/dL (0.2-1.0) 10/10/24 11:40 AST < 10 U/L (15-37) L 10/10/24 11:40 ALT 18 U/L (13-56) 10/10/24 11:40 Alkaline Phosphatase 59 U/L (45-117) 10/10/24 11:40 Home Medications: Escitalopram [Lexapro*] 20 mg PO BEDTIME 11/15/20 Dapagliflozin Propanediol [Farxiga] 1 tab PO DAILY 10/03/24 Omeprazole 1 tab PO DAILY 10/03/24 Rosuvastatin [Crestor*] 1 tab PO DAILY 10/03/24 Magnesium Oxide [Mag 0X*] 400 mg PO DAILY #30 tab 10/04/24 Physician Discharge Instructions: Physician discharge instructions: Patient presented with chest pain and dizziness associated with palpitations. Lab work on admission noted low potassium (2.7) otherwise the rest of the her labs on admission were unremarkable. She was recently observed in hospital and discharged on 10/04 for similar issues/symptoms. Potassium at the time was much lower (2.1). At that time, it was felt her Bumex was causing her hypokalemia. After discharge she continued to take her bumex until she saw her plastic die maker apprentice in the office on the . She then developed chest pain / dizziness yesterday, so came to the ER. Her potassium was repleted / improved overnight. she reported feeling much better and was requesting to be discharged home today. Discussed since she is having a recurrence of the same issue within 1 week of a discharge, may be safer to stay an additional night to ensure her potassium levels remain in normal range. She can have low intracellular potassium. On the other hand, her potassium is not as low as it was last week, and she did continue to take the Bumex after discharge. Her risk of ongoing hypokalemia will be lower this time since she won't be taking bumex. She reported having several responsibilities outside of the hospital that she really had to take care of. Discussed risks/benefits of above, and she chose to go home, which is less than ideal, but I think reasonable since Bumex is the most likely culprit. Return precautions were given, and she expressed understanding. Cardiac work up this hospitalization was negative. EKG was without ischemic changes. Chest xray was negative for any acute findings. Troponins negative. 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 Advised patient to repeat blood work in a few days with PCP to ensure continued improvement/stability of potassium levelss Medications: Stop Bumex for now. Continue daily 20meq potassium for the next 5 days with repeat bloodwork Fri/ of this coming week (~3-4 days from now) continue other home meds as previously prescribed Follow up: PCP 3-5 days Cardiology as scheduled Please call to schedule / confirm appointments Followup: NONE,NONE [Primary Care Provider] - Time spent managing pt's care (in minutes): 45
== END 2024-10-10 17:00 | disposition home or self-care (01) ==
LOC: ER 18:56 → 2ND 22:34
PROVIDERS: ADMIT Hospitalist; ATTEND Hospitalist
DX: R07.9 Chest pain, unspecified (principal); E87.6 Hypokalemia; I50.32 Chronic diastolic (congestive) heart failure; M10.9 Gout, unspecified; E78.00 Pure hypercholesterolemia, unspecified; E78.5 Hyperlipidemia, unspecified; F32.A Depression, unspecified; R42 Dizziness and giddiness; K21.9 Gastro-esophageal reflux disease without esophagitis; R11.0 Nausea; E11.9 Type 2 diabetes mellitus without complications; I25.10 Atherosclerotic heart disease of native coronary artery without angina pectoris; G47.33 Obstructive sleep apnea (adult) (pediatric); Z98.84 Bariatric surgery status; Z91.81 History of falling
CPT/HCPCS: 96365; 85025 ×2; 80048; 36415 ×2; 83735 ×2; 84132; 85610; 80076; 84484 ×3; 80053; 83880; 71045; 99285; 96366; J3480 ×3; J1650; J7050 ×2; J7040; 93005; G0378